=== PATIENT | female | born 1945 | race Caucasian/White ===

== ENCOUNTER 2022-01-22 16:18 | Outpatient (CLI) | payer MEDICARE, SELFPAY ==
[2022-01-22 08:58] LABS: Abs Immature Grans 0.06 10^3/uL (0.0-0.06); Absolute Basophil Count 0.08 10^3/uL (0.0-0.2); Absolute Eosinophil Count 0.25 10^3/uL (0.0-0.7); Absolute Lymphocyte Count 1.02 10^3/uL (1.2-3.4); Absolute Monocyte Count 0.69 10^3/uL (0.1-0.8); Absolute Neutrophil Count 5.57 10^3/uL (1.2-6.7); Eosinophils % 3.3; HCT 39.8 % (36.0-46.0); HGB 12.9 g/dL (11.2-15.7); Immature Grans % 0.8; Lymphocytes % 13.3; MCHC 32.4 % (32.0-36.0); MCV 96 fL (80-95); MPV 9.5 fL (8.0-11.0); Neutrophils % 72.6; Platelet Count 323 10^3/uL (130-400); RBC 4.16 10^6/uL (3.93-5.22); RDW 14.4 % (11.7-14.6); RDW-SD 50.7 fL; WBC 7.67 10^3/uL (4.4-10.8)
[2022-01-22 09:14] LABS: ALT 80 U/L (14-59); AST 41 U/L (15-37); Albumin 3.5 g/dL (3.4-5.0); Alkaline Phosphatase 411 U/L (46-116); Anion Gap 8.6 mmol/L (3-11); BUN 19 mg/dL (7-18); Bilirubin, Total 1.3 mg/dL (0.2-1.0); CO2 27.4 mmol/L (21.0-32.0); CREATININE 0.8 mg/dL (0.55-1.02); Calcium 9.1 mg/dL (8.5-10.1); Chloride 102 mmol/L (98-107); Glucose 102 mg/dL (74-106); Potassium 4.3 mmol/L (3.5-5.1); Sodium 138 mmol/L (136-145); Total Protein 7.4 g/dL (6.4-8.2)
[2022-01-25 11:54] LABS: CA 19-9 23 U/mL (<35)
== END 2022-01-22 16:19 | disposition home or self-care (01) ==
LOC: LBO 16:19
PROVIDERS: Visit Provider Internal Medicine Hematology & Oncology
DX: C25.0 Malignant neoplasm of head of pancreas (principal)
CPT/HCPCS: 36415; 80053; 85025; 86301

== ENCOUNTER 2022-02-05 08:30 | Outpatient (RCR) | payer MEDICARE, SELFPAY ==
[2022-01-24] MEDS: Heparin 500 UNITS/5 ML SYRINGE (14:03)
[2022-01-24] MEDS: Normal Saline Flush 10 ML SYR (14:03)
[2022-01-24 14:17] VITALS: BP 107/59; PULSE 68; RESP 22; TEMP 36.3; O2SAT 96
--- OUTSIDE RECORDS SUMMARY | 2022-01-26 14:13 | XMS_ITS ---
:1945 Author Care Team Providers Name Role Phone KIMMY VILLATORO Primary Care Provider [phone] Allergies Code Code System Name Reaction Severity Status Onset 20331226 RxNorm Benadryl ? ? Active ? 11420124 RxNorm Fosamax ? ? Active ? 20231023 RxNorm Tylenol ? ? Active ? RxNorm Zocor ? ? Active ? Medications Name Status Start Date Stop Date ? ? albuterol sulfate 2.5 mg/3 mL (0.083 %) Completed ? 12/11/2018 solution for nebulization alendronate 70 mg tablet Completed ? 019 alfalfa Active ? Not available 2 tablets three times daily amoxicillin 400 mg/5 mL oral suspension Completed ? 12/11/2018 amoxicillin 875 mg-potassium clavulanate 125 mg Completed ? 02/02/2018 tablet aspirin Active ? Not available 81 mg daily aspirin 81 mg tablet,delayed release Completed ? 12/24/2020 Take 1 tablet every day by oral route. B Complex Active ? Not available 1 daily Bilberry Extract Active ? Not available 1 tab daily Boniva 150 mg tablet Completed 05/20/2009 05/20/2009 1 (one) Tablet: Once monthly Calcium + D Active ? Not available 1 tab daily calcium-vitamin D3 600 mg-5 mcg (200 unit) Completed 10/0504/24/2015 tablet Caltrate Active ? Not available 1tablet twice daily cefdinir 250 mg/5 mL oral suspension Completed ? 12/11/2018 clobetasol 0.05 % topical ointment Completed 12/02/2011 06/15/2012 1 (one) Ointment: twice daily clotrimazole-betamethasone 1 %-0.05 % topical cream Completed 08/17/2007 08/17/2007 1 Cream: Twice daily Co Q-10 200 mg capsule Completed 09/24/2013 6 1 Capsule: qd - daily CoQ10 Active ? Not available 1 tab daily-200 mg cranberry Active ? Not available 1 tab daily Crestor 5 mg tablet Completed 06/18/2009 05/19/2010 1 (one) Tablet: daily cyanocobalamin (vitamin B-12) Active ? No t available 1 daily ezetimibe 10 mg tablet Active ? Not avail able TAKE ONE TABLET BY MOUTH EVERY DAY famotidine 20 mg tablet Completed 10/05/2013 07/24/20 15 1 (one) Tablet: daily flaxseed oil 1,000 mg capsule Completed 05/11/2011 2 (two) Tablespoon(s): two times daily fluconazole 150 mg tablet Completed 10/05/20132014 1 (one) Tablet Tablet: as directed ibuprofen 800 mg tablet Completed 01/15/2013 07/24/20 15 1 Tablet: every 8 hours as needed Lipitor 10 mg tablet Completed 06/04/2011 06/15/2012 1 (one) Tablet: daily loratadine 10 mg tablet Completed ? 02/15/20 18 lovastatin 20 mg tablet Active ? Not avai lable TAKE ONE TABLET BY MOUTH EVERY DAY Macrobid 100 mg capsule Completed 12/11/2008 05/08/20 09 1 Cap: Twice daily multivitamin Completed ? 05/03/2019 1 tab daily omeprazole 20 mg capsule,delayed release Completed ? 11/24/2021 Take 1 capsule every day by oral route in the morning. omeprazole 40 mg capsule,delayed release Active ? Not available TAKE ONE CAPSULE BY MOUTH EVERY DAY Pepto-Bismol Active ? Not available 1 tsp daily at night pravastatin 10 mg tablet Completed ? 020 pravastatin 20 mg tablet Completed ? 021 TAKE ONE TABLET BY MOUTH EVERY DAY pravastatin sodium 20 mg tabs Completed ? Premarin 0.625 mg/gram vaginal cream Completed 08/17/2007 08/17/2007/2 applic Cream: QHS / HS Prevacid 30 mg capsule,delayed release Completed 7 11/04/2006 1 (one) Cap DR: Daily PreviDent 5000 Booster Plus 1.1 % dental paste Completed ? 07/30/2021 Probiotic Active ? Not available 3 caps daily Pulmicort 1 mg/2 mL suspension for nebulization Completed ? 12/11/2018 Pyridium 100 mg tablet Completed 12/11/2008 9 1 Tablet: tid - three times a day Pyridium 200 mg tablet Completed 08/28/2015 6 1 (one) Tablet: See comments red yeast rice 600 mg capsule Completed 06/23/2007 1 (one) Capsule: daily Repatha SureClick 140 mg/mL subcutaneous pen injector Completed 12/13/2018 05/03/2019 140 mg every two weeks. Terazol 3 80 mg vaginal suppository Completed 07/04/2007 07/07/2007 1 (one) Suppository: QHS / HS Terazol 7 0.4 % vaginal cream Completed 06/14/2007 1 (one) Applicator(s): QHS / HS Notes: kelp and alfalfa 01/01/22 verbal review Problems Name Status Onset Date Source ? Mass of Pancreas Active 12/24/2021 ? Hyperlipidemia Active ? History Temporomandibular Joint Disorder Active ? History Focal Oral Mucinosis Active ? History Gastroesophageal Reflux Disease Active ? History Atrophic Vaginitis Unknown ? History Backache Unknown ? History Osteoporosis Active ? History Dysuria Unknown ? History Abdominal Pain Unknown ? History Gynecologic Examination Unknown ? History Screening Mammography Unknown ? History Procedure by Method Unknown ? History Procedures Date Name Performed by ? 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 [address] [place] [address] (Work Place) 12/11/2018 MAMMO, Screening, Tomosynthesis, [facility] (Internal) Bilateral [address] [place] [address] (Work Place) 02/08/2019 MAMMO, Screening, Tomosynthesis, [facility] (Internal) Bilateral [address] [place] [address] (Work Place) 12/24/2019 MAMMO, Screening, Tomosynthesis, [facility] (Internal) Bilateral [address] [place] [address] (Work Place) 05/14/2020 MAMMO, Screening, Tomosynthesis, [facility] (Internal) Bilateral [address] [place] [address] (Work Place) 12/24/2020 MAMMO, Screening, Tomosynthesis, [facility] (Internal) Bilateral [address] [place] [address] (Work Place) 11/24/2021 US, Echocardiogram, Transthoracic, [facility] (Internal) Complete [address] [place] [address] (Work Place) 11/24/2021 US, Carotid Artery [facility] (Internal) [address] [place] [address] (Work Place) 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 01/01/2022 CBC W/ Auto BLD ? Wbc 9.7 5.0-10.0 Final [place] Diff 10*3/uL 10*3/uL [facility] L ab (Internal) : [address] ? ? BLD Low Rbc 4.02 4.10-5.30 Final [place] 10*6/uL 10*6/uL [facility] L ab (Internal) : [address] ? ? BLD ? Hgb 12.0 g/dL 12.0-16.0 Final Nort h g/dL [facility] L ab (Internal) : [address] ? ? BLD ? Hct 37.6 % 37.0-47.0 Final [facility] L ab (Internal) : [address] ? ? BLD ? Mcv 93.5 fL 80.0-96.0 Final [facility] L ab (Internal) : [address] ? ? BLD ? Mch 29.9 pg 26.0-32.0 Final [facility] Hospital L ab (Internal) : [address] ? ? BLD ? Mchc 31.9 g/dL 31.0-35.0 Final Nort h g/dL [facility] L ab (Internal) : [address] ? ? BLD High Rdw 17.8 % 11.5-14.5 Final [facility] L ab (Internal) : [address] ? ? BLD ? Plt 407 130-450 Final [place] 10*3/uL 10*3/uL [facility] L ab (Internal) : [address] 01/01/2022 Differential BLD ? Polys 72 % 40-75 % Final [facility] Hospital L ab (Internal) : [address] ? ? BLD ? Bands 1 % 0-5 % Final [facility] Hospital L ab (Internal) : [address] [place] ? ? BLD Low Lymphs 11 % 20-50 % Final [facility] L ab (Internal) : [address] ? ? BLD ? Reeves 7 % 2-10 % Final [facility] L ab (Internal) : [address] ? ? BLD ? Eos 2 % 0-6 % Final [facility] L ab (Internal) : [address] ? ? BLD ? Baso 0 % 0-1 % Final [facility] L ab (Internal) : [address] ? ? BLD ? Atyp Lymph 0 % ? Final [facility] L ab (Internal) : [address] ? ? BLD High Young 7 % 0-0 % Final [facility] L ab (Internal) : [address] ? ? BLD ? Plts, Est. adequate adequate [facility] : [address] ? ? BLD ABNORMAL RBC abnormal normal Final [facility] L ab (Internal) : [address] t ? ? BLD ? Aniso small ? Final [facility] L ab (Internal) : [address] ? ? BLD ? Polychrom rare ? Final [facility] L ab (Internal) : [address] ? ? BLD ? Stomat small ? Final [facility] L ab (Internal) : [address] 01/01/2022 Neutrophil BLD ? Anc-manual 7.05 ? Shirin l [place] Count, 10*3/uL [facility] Lab (Anc), Blood (Int ernal): [address] 01/01/2022 Nlr-manual BLD High Nlr - 6.64 0.00-3.20 Final [facility] L ab (Internal) : [address] 01/01/2022 CMP, Serum S High g/r 164 mg/dL 74-106 Final [place] or Plasma mg/dL [facility] L ab (Internal) : [address] t ? ? S ? Bun 11 mg/dL 7-18 Final [facility] mg/dL [facility] L ab (Internal) : [address] t ? ? S ? Crea 0.7 mg/dL 0.6-1.0 Final [facility] mg/dL [facility] L ab (Internal) : [address] t ? ? S Low Ca 8.2 mg/dL 8.5-10.1 Final [place] mg/dL [facility] L ab (Internal) : [address] t ? ? S ? Na 136 mmol/L 136-145 Final [facility] mmol/L [facility] L ab (Internal) : [address] t ? ? S ? K 4.5 mmol/L 3.5-5.1 Final [facility] mmol/L [facility] L ab (Internal) : [address] t ? ? S ? Cl 102 mmol/l 98-107 Final [facility] mmol/l [facility] L [facility] (Internal) : [address] t ? ? S ? Tco2 29.1 21.0-32.0 Final [place] mmol/L mmol/L [facility] L ab (Internal) : [address] t ? ? S Low Tp 6.0 g/dL 6.4-8.2 Final [place] g/dL [facility] L ab (Internal) : [address] t ? ? S Low Alb 2.6 g/dL 3.4-5.0 Final [place] g/dL [facility] L ab (Internal) : [address] t ? ? S High Tbil 4.00 mg/dL 0.20-1.00 Final [facility] th mg/dL [facility] L ab (Internal) : [address] t ? ? S High Alp 1318 U/L 46-116 Final [place] U/L [facility] L ab (Internal) : [address] ? ? S High Alt (Sgpt) 317 U/L 14-59 U/L Final [facility] L ab (Internal) : [address] ? ? S High Ast (Sgot) 342 U/L 15-37 U/L Final [facility] L ab (Internal) : [address] t 12/14/2021 CBC W/ Auto BLD ? Wbc 5.4 5.0-10.0 Final [place] Diff 10*3/uL 10*3/uL [facility] L ab (Internal) : [address] t ? ? BLD ? Rbc 4.49 4.10-5.30 Final [place] 10*6/uL 10*6/uL [facility] L ab (Internal) : [address] t ? ? BLD ? Hgb 13.6 g/dL 12.0-16.0 Final Nort [facility] g/dL [facility] L ab (Internal) : [address] t ? ? BLD ? Hct 42.4 % 37.0-47.0 Final [place] % [facility] L ab (Internal) : [address] ? ? BLD ? Mcv 94.4 fL 80.0-96.0 Final [facility] L ab (Internal) : [address] ? ? BLD ? Mch 30.3 pg 26.0-32.0 Final [facility] Hospital L ab (Internal) : [address] ? ? BLD ? Mchc 32.1 g/dL 31.0-35.0 Final Nort h g/dL [facility] L ab (Internal) : [address] ? ? BLD High Rdw 14.9 % 11.5-14.5 Final [facility] L ab (Internal) : [address] ? ? BLD ? Plt 246 130-450 Final [place] 10*3/uL 10*3/uL [facility] L ab (Internal) : [address] ? ? BLD ? Anc 3.99 ? Final [place] 10*3/uL [facility] L ab (Internal) : [address] ? ? BLD High Nlr 5.12 0.00-3.20 Final [facility] L ab (Internal) : [address] ? ? BLD ? Neutro 74.1 % 40.0-75.0 Final [facility] L ab (Internal) : [address] ? ? BLD Low Lymph 14.5 % 20.0-50.0 Final [facility] L ab (Internal) : [address] ? ? BLD ? Reeves 8.2 % 2.0-10.0 Final [facility] L ab (Internal) : [address] ? ? BLD ? Eos 1.5 % 1.0-6.0 % Final [facility] L ab (Internal) : [address] ? ? BLD High Baso 1.1 % 0.0-1.0 % Final [facility] L ab (Internal) : [address] ? ? BLD ? Ig 0.6 % 0.0-0.9 % Final [facility] L ab (Internal) : [address] t 12/14/2021 Urinalysis, UR ? UA-color yellow pale Final [place] Dipstick, yellow [facility] ital Lab (Internal) : [address] ? ? UR ? UA-appear clear clear Final [facility] ab (Internal) : [address] t ? ? UR ? UA-gluc negative negative Final [facility] L ab (Internal) : [address] t ? ? UR ? UA-bili negative negative Final [facility] L ab (Internal) : [address] t ? ? UR ? UA-ketone negative negative Final No rth [facility] L ab (Internal) : [address] t ? ? UR ? UA-spec <1.005 1.003-1.0 Final [place] Grav 35 [facility] L ab (Internal) : [address] t ? ? UR ? UA-blood negative negative Final [facility] L ab (Internal) : [address] t ? ? UR ? UA-pH 6.0 [pH] 4.6-8.0 Final [place] [pH] [facility] L ab (Internal) : [address] t ? ? UR ? UA-prot negative negative Final [facility] L ab (Internal) : [address] t ? ? UR ? UA-urobil normal normal Final [facility] L ab (Internal) : [address] t ? ? UR ? UA-nitrite negative negative Final N orth [facility] L ab (Internal) : [address] t ? ? UR ? UA-leuk negative negative Final [facility] L ab (Internal) : [address] 12/14/2021 BMP, Serum S High g/r 158 mg/dL 74-106 Final [place] or Plasma mg/dL [facility] L ab (Internal) : [address] t ? ? S ? Bun 10 mg/dL 7-18 Final [place] mg/dL [facility] L ab (Internal) : [address] t ? ? S ? Crea 0.7 mg/dL 0.6-1.0 Final [place] mg/dL [facility] L ab (Internal) : [address] t ? ? S ? Ca 9.3 mg/dL 8.5-10.1 Final [place] mg/dL [facility] L ab (Internal) : [address] t ? ? S ? Na 138 mmol/L 136-145 Final [place] mmol/L [facility] L ab (Internal) : [address] t ? ? S ? K 4.2 mmol/L 3.5-5.1 Final [place] mmol/L [facility] L ab (Internal) : [address] t ? ? S ? Cl 101 mmol/l 98-107 Final [place] mmol/l [facility] L ab (Internal) : [address] t ? ? S ? Tco2 28.3 21.0-32.0 Final [place] mmol/L mmol/L [facility] Hospital L ab (Internal) : [address] 12/14/2021 Hepatic S High Tbil 9.80 mg/dL 0.20-1.00 Final [place] Function mg/dL [facility] Panel, Serum Hosp ital Lab (Internal) : [address] t ? ? S High Dbil 7.74 mg/dL 0.00-0.20 Final [facility] th mg/dL [facility] Hospital L ab (Internal) : [address] t ? ? S High Alp 430 U/L 46-116 Final [place] U/L [facility] L ab (Internal) : [address] t ? ? S High Alt (Sgpt) 282 U/L 14-59 U/L Final [facility] L ab (Internal) : [address] t ? ? S High Ast (Sgot) 131 U/L 15-37 U/L Final [facility] L ab (Internal) : [address] t ? ? S High Ggt 1173 U/L 5-55 U/L Final [facility] L ab (Internal) : [address] t ? ? S ? Tp 7.9 g/dL 6.4-8.2 Final [place] g/dL [facility] L ab (Internal) : [address] t ? ? S ? Alb 4.0 g/dL 3.4-5.0 Final [place] g/dL [facility] Hospital L ab (Internal) : [address] 12/14/2021 CK (Creatine S ? Cpk 39 U/L 26-192 Final [place] Kinase), U/L [place] Total, Serum Hosp ital Lab (Internal) : [address] [facility] 12/14/2021 ESR BLD ? Esr 4 mm/h 0-30 mm/h Final Nor th (Erythrocyte Coun try Sedimentatio Hosp ital Lab n Rate), (Interna l): Blood [address] 12/14/2021 Lipase, S ? Lip 153 U/L 73-393 Final Nort h Serum or U/L [facility] Plasma Hospital L ab (Internal) : [address] [facility] 12/14/2021 CRP, High S High Rcrp 3.78 mg/L 0.00-3.00 Shirin [facility] Sensitivity, mg/L Coun try Serum or Hospital Lab Plasma (Internal) : [address] [facility] 12/14/2021 Phosphorus, S ? Phos 3.1 mg/dL 2.6-4.7 Shirin [facility] Serum or mg/dL [facility] Hospital L ab (Internal) : [address] [facility] 12/14/2021 Hepatitis S ? Hepatitis negative negative [facility] Panel a IgM Ab, S Count ry (A+B+C), Hospital Lab Acute, Serum (Int ernal): [address] t ? ? S ? Hbs negative negative Final [place] Antigen, S [facility] L ab (Internal) : [address] t ? ? S ? Hbc IgM negative negative Final Nort h Ab, S [facility] L ab (Internal) : [address] t ? ? S ? HCV Ab, S negative negative Final No rth [facility] ab (Internal) : [address] [facility] Aldolase, S High Aldolase, 10.3 U/L <7.7 U/L [facility] Serum S [facility] L ab (Internal) : [address] [facility] 12/14/2021 CK (Creatine S ? Creatine 38 U/L 26 - 192 Fi [facility] Kinase) Kinase U/L [place] Isoenzymes, (CK), S Hosp ital Lab Serum (Internal) : [address] t ? ? S ? CK if CK ? Final [place] Isoenzyme result IS Coun try Elec, <100, Hospital L ab Specimen isoenzyme (Inte rnal): Only will not [address] performed. 11/24/2021 CBC W/ Auto BLD ? Wbc 6.2 5.0-10.0 Final [place] Diff 10*3/uL 10*3/uL [facility] L ab (Internal) : [address] ? ? BLD ? Rbc 4.59 4.10-5.30 Final [place] 10*6/uL 10*6/uL [facility] Hospital L ab (Internal) : [address] ? ? BLD ? Hgb 14.0 g/dL 12.0-16.0 Final Nort h g/dL [facility] L ab (Internal) : [address] ? ? BLD ? Hct 42.7 % 37.0-47.0 Final [facility] L ab (Internal) : [address] ? ? BLD ? Mcv 93.0 fL 80.0-96.0 Final [facility] L ab (Internal) : [address] ? ? BLD ? Mch 30.5 pg 26.0-32.0 Final [facility] L ab (Internal) : [address] ? ? BLD ? Mchc 32.8 g/dL 31.0-35.0 Final Nort h g/dL [facility] L ab (Internal) : [address] ? ? BLD ? Rdw 12.6 % 11.5-14.5 Final [facility] L ab (Internal) : [address] ? ? BLD ? Plt 279 130-450 Final [place] 10*3/uL 10*3/uL [facility] L ab (Internal) : [address] ? ? BLD ? Anc 4.53 ? Final [place] 10*3/uL [facility] L ab (Internal) : [address] ? ? BLD High Nlr 4.23 0.00-3.20 Final [facility] L ab (Internal) : [address] ? ? BLD ? Neutro 73.5 % 40.0-75.0 Final [facility] L ab (Internal) : [address] ? ? BLD Low Lymph 17.3 % 20.0-50.0 Final [place] % [facility] Hospital L ab (Internal) : [address] ? ? BLD ? Reeves 7.1 % 2.0-10.0 Final [place] % [facility] Hospital L ab (Internal) : [address] ? ? BLD ? Eos 1.1 % 1.0-6.0 % Final [facility] Hospital L ab (Internal) : [address] ? ? BLD ? Baso 0.8 % 0.0-1.0 % Final [facility] L ab (Internal) : [address] ? ? BLD ? Ig 0.2 % 0.0-0.9 % Final [facility] L ab (Internal) : [address] 11/24/2021 HbA1C BLD High Ha1C 6.7 % 4.0-6.0 % Final Nor th (Hemoglobin Count ry a1C), Blood Hospi alessandra Lab (Internal) : [address] 11/24/2021 CRP, High S ? Rcrp 1.40 mg/L 0.00-3.00 Shirin l [place] Sensitivity, mg/L Coun try Serum or Hospital Lab Plasma (Internal) : [address] 11/24/2021 CMP, Serum S High g/r 157 mg/dL 74-106 Final [facility] or Plasma mg/dL [facility] (Internal) : [address] t ? ? S ? Bun 14 mg/dL 7-18 Final [place] mg/dL [facility] Hospital L ab (Internal) : [address] t ? ? S ? Crea 0.9 mg/dL 0.6-1.0 Final [place] mg/dL [facility] Hospital L ab (Internal) : [address] t ? ? S ? Ca 9.1 mg/dL 8.5-10.1 Final [place] mg/dL [facility] Hospital L ab (Internal) : [address] t ? ? S ? Na 142 mmol/L 136-145 Final [place] mmol/L [facility] Hospital L ab (Internal) : [address] ? ? S ? K 4.3 mmol/L 3.5-5.1 Final [facility] mmol/L [facility] (Internal) : [address] ? ? S ? Cl 103 mmol/l 98-107 Final [facility] mmol/l [facility] (Internal) : [address] ? ? S High Tco2 35.1 21.0-32.0 Final [facility] mmol/L mmol/L [facility] (Internal) : [address] t ? ? S ? Tp 7.6 g/dL 6.4-8.2 Final [facility] g/dL [facility] (Internal) : [address] t ? ? S ? Alb 4.0 g/dL 3.4-5.0 Final [facility] g/dL [facility] (Internal) : [address] ? ? S ? Tbil 0.60 mg/dL 0.20-1.00 Final [facility] mg/dL [facility] (Internal) : [address] ? ? S High Alp 164 U/L 46-116 Final [facility] U/L [facility] (Internal) : [address] t ? ? S High Alt (Sgpt) 81 U/L 14-59 U/L Final No rth [facility] L [facility] (Internal) : [address] ? ? S High Ast (Sgot) 53 U/L 15-37 U/L Final [facility] rth [facility] (Internal) : [address] 11/24/2021 Lipase, S ? Lip 352 U/L 73-393 Final Nort h Serum or U/L [facility] L ab (Internal) : [address] 07/31/2021 CMP, Serum S High g/r 119 mg/dL 74-106 Final [facility] or Plasma mg/dL [facility] (Internal) : [address] t ? ? S ? Bun 14 mg/dL 7-18 Final [facility] mg/dL [facility] (Internal) : [address] t ? ? S ? Crea 0.8 mg/dL 0.6-1.0 Final [facility] mg/dL [facility] (Internal) : [address] t ? ? S ? Ca 9.3 mg/dL 8.5-10.1 Final [facility] mg/dL [facility] (Internal) : [address] ? ? S ? Na 140 mmol/L 136-145 Final [facility] mmol/L [facility] (Internal) : [address] ? ? S ? K 4.1 mmol/L 3.5-5.1 Final [facility] mmol/L [facility] (Internal) : [address] t ? ? S ? Cl 102 mmol/l 98-107 Final [facility] mmol/l [facility] (Internal) : [address] ? ? S ? Tco2 30.8 21.0-32.0 Final [facility] mmol/L mmol/L [facility] (Internal) : [address] ? ? S ? Tp 7.8 g/dL 6.4-8.2 Final [facility] g/dL [facility] (Internal) : [address] t ? ? S ? Alb 4.3 g/dL 3.4-5.0 Final [facility] g/dL [facility] : [address] [facility] ? ? S ? Tbil 0.90 mg/dL 0.20-1.00 Final Nor th mg/dL [facility] ([facility] : [address] ? ? S ? Alp 103 U/L 46-116 Final [place] U/L [facility] ([facility]) : [address] ? ? S ? Alt (Sgpt) 26 U/L 14-59 U/L Final No rth [facility] ([facility]) : [address] ? ? S ? Ast (Sgot) 16 U/L 15-37 U/L Final No rth [facility] ([facility]) : [address] t 07/31/2021 Lipid Panel, S High Chol 259 mg/dL 0-200 [facility] [place] Serum mg/dL [facility] ([facility]) : [address] ? ? S High Trig 176 mg/dL 0-150 Final [place] mg/dL [facility] ([facility]) : [address] ? ? S ? Hdl 42 mg/dL 40-60 Final [place] mg/dL [facility] ([facility]) : [address] ? ? S High Ldl 182 mg/dL 0-130 Final [place] mg/dL [facility] ([facility]) : [address] t 12/26/2019 CMP, Serum S ? g/r 102 mg/dL 74-106 Final [place] or Plasma mg/dL [facility] ([facility]) : [address] ? ? S ? Bun 14 mg/dL 7-17 Final [place] mg/dL [facility] ([facility]) : [address] ? ? S ? Crea 0.80 mg/dL 0.52-1.04 Final Nor th mg/dL [facility] ([facility]) : [address] ? ? S ? Ca 9.5 mg/dL 8.4-10.2 Final [place] mg/dL [facility] ([facility]) : [address] ? ? S ? Na 141 mmol/L 137-145 Final [place] mmol/L [facility] ([facility]) : [address] ? ? S ? K 4.3 mmol/L 3.5-5.1 Final [place] mmol/L [facility] ([facility]) : [address] ? ? S ? Cl 100 mmol/L 98-107 Final [place] mmol/L [facility] ([facility]) : [address] ? ? S High Tco2 32.0 22.0-30.0 Final [place] mmol/L mmol/L [facility] ([facility]) : [address] ? ? S ? Tp 7.8 g/dL 6.3-8.2 Final [place] g/dL [facility] ([facility]) : [address] ? ? S ? Alb 4.5 g/dL 3.5-5.0 Final [place] g/dL [facility] ([facility]) : [address] ? ? S ? Tbil 0.9 mg/dL 0.2-1.3 Final [place] mg/dL [facility] ([facility]) : [address] ? ? S ? Alp 89 U/L 38-126 Final [place] U/L [facility] ([facility]) : [address] ? ? S ? Alt (Sgpt) 15 U/L 9-52 U/L Final Nor th [facility] ([facility]) : [address] ? ? S ? Ast (Sgot) 30 U/L 14-36 U/L Final No rth [facility] ([facility]) : [address] 12/26/2019 Lipid Panel, S High Chol 225 mg/dL 50-200 [facility] [place] Serum mg/dL [facility] ([facility]) : [address] ? ? S High Trig 196 mg/dL 10-150 Final [place] mg/dL [facility] ([facility]) : [address] ? ? S ? Hdl 41 mg/dL 40-60 Final [place] mg/dL [facility] ([facility]) : [address] ? ? S High Ldl 145 mg/dL 0-130 Final [place] mg/dL [facility] ([facility]) : [address] 07/30/2019 Lipid Panel, S High Chol 225 mg/dL 50-200 [facility] [place] Serum mg/dL [facility] ([facility]) : [address] ? ? S High Trig 230 mg/dL 10-150 Final [place] mg/dL [facility] ([facility]) : [address] ? ? S - Hdl 41 mg/dL 40-60 Final [place] mg/dL [facility] ([facility] : [address] ? ? S High Ldl 138 mg/dL 0-130 Final [place] mg/dL [facility] ([facility]) : [address] 04/30/2019 Lipid Panel, S High Chol 264 mg/dL 50-200 [facility] [place] Serum mg/dL [facility] ([facility]) : [address] ? ? S - Trig 119 mg/dL 10-150 Final [place] mg/dL [facility] ([facility] : [address] ? ? S - Hdl 42 mg/dL 40-60 Final [place] mg/dL [facility] ([facility]) : [address] ? ? S High Ldl 198 mg/dL 0-130 Final [place] mg/dL [facility] ([facility]) : [address] 12/12/2018 BMP, Serum S - g/r 100 mg/dL 74-106 Final [place] or Plasma mg/dL [facility] ([facility]) : [address] ? ? S - Bun 13 mg/dL 7-17 Final [place] mg/dL [facility] ([facility]) : [address] ? ? S - Crea 0.80 mg/dL 0.52-1.04 Final Nor th mg/dL [facility] ([facility]) : [address] ? ? S - Ca 9.0 mg/dL 8.4-10.2 Final [place] mg/dL [facility] ([facility]) : [address] ? ? S - Na 140 mmol/L 137-145 Final [place] mmol/L [facility] ([facility]) : [address] ? ? S - K 4.1 mmol/L 3.5-5.1 Final [place] mmol/L [facility] ([facility]) : [address] ? ? S - Cl 105 mmol/L 98-107 Final [place] mmol/L [facility] ([facility]) : [address] ? ? S - Tco2 29.0 22.0-30.0 Final [place] mmol/L mmol/L [facility] ([facility]) : [address] 12/12/2018 Lipid Panel, S High Chol 275 mg/dL 50-200 [facility] [place] Serum mg/dL [facility] ([facility]) : [address] ? ? S High Trig 188 mg/dL 10-150 Final [place] mg/dL [facility] ([facility]) : [address] ? ? S - Hdl 41 mg/dL 40-60 Final [place] mg/dL [facility] ([facility]) : [address] ? ? S High Ldl 196 mg/dL 0-130 Final [place] mg/dL [facility] ([facility]) : [address] 02/02/2018 Dexa ? No ? ? ? P_ob/G yn: 81 observation Medic al recorded. [facility] 12/03/2016 Venipuncture BLD ? Venpn* ? ? Final [facility] ([facility]) : [address] 12/03/2016 Glucose, S ? g/r 103 mg/dL 74-106 Final N orth Serum or mg/dL [facility] ([facility]) : [address] 12/03/2016 TSH, Serum S ? Tsh 2.39 0.47-4.68 Final [place] or Plasma u[IU]/mL u[IU]/mL [facility] (Internal) : [address] 12/03/2016 Lipid Panel, S High Chol 260 mg/dL 50-200 Shirin l [place] Serum mg/dL [facility] (Internal) : [address] ? ? S High Trig 207 mg/dL 10-150 Final North mg/dL [facility] (Internal) : [address] ? ? S ? Hdl 40 mg/dL 40-60 Final [place] mg/dL [facility] (Internal) : [address] ? ? S High Ldl 179 mg/dL 0-130 Final [place] mg/dL [facility] (Internal) : [address] Past Encounters 01/01/2022 Mass of Pancreas; Cholecystitis; Jaundic e Kimmy Dee PA: [address] [place] [address], Ph. 12/14/2021 Jaundice Kimmy Dee PA: [address] [place] [address], Ph. 11/24/2021 Nausea; Lightheadedness; Near Syncope; H yperlipidemia Kimmy Dee PA: [address] [place] [address], Ph. 07/30/2021 Hyperlipidemia Kimmy Dee PA: [address] [place] [phone], Ph. 04/30/2021 Hyperlipidemia IRVING Fong: [address] [place] [address], Ph. 12/24/2020 Adult Health Examination; Screening Mamm ography; Administration of Pneumococcal Vaccine; Hyperlipidemia; Osteoporosis IRVING Fong: [address] [place] [address], Ph. Social History Tobacco Smoking Status Never Smoker Vaccine List Vaccine Type COVID-19, mRNA, LNP-S, PF, 100 mcg/0.5 m L dose (Moderna) 10/21/2020?0.5 mL 11/17/2020?100 mcg 07/13/2021 influenza, seasonal, injectable 06/05/2012 06/13/2014?0.5 mL influenza, seasonal, injectable, preserv ative free 06/21/2013?0.5 mL pneumococcal conjugate PCV 13 01/10/2019?0.5 mL pneumococcal polysaccharide PPV23 12/24/2020?0.5 mL rubella Tdap 05/08/2009 12/24/2019?0.5 mL varicella zoster live 08/22/2012 Plan of Care Reminders Provider Appointments None recorded. ? ? Lab None recorded. ? ? Referral None recorded. ? ? Procedures None recorded. ? ? Surgeries None recorded. ? ? Imaging None recorded. ? ? Vitals 01/01/2022 03:40PM Follow Up 20 Height Weight BMI Blood Pressure 152.4 cm 59.38 kg 25.6 kg/m2 122/72 mm[Hg] 12/14/2021 12:40PM Acute 20 Height Weight BMI Blood Pressure 152.4 cm 57.74 kg 24.9 kg/m2 104/66 mm[Hg] 11/24/2021 10:40AM Acute 40 Height Weight BMI Blood Pressure 152.4 cm 58.51 kg 25.2 kg/m2 (1) 130/78 mm[H g] (2) 128/72 mm[Hg ] (3) 122/68 mm[Hg ] (4) 124/74 mm[Hg ] 07/30/2021 02:40PM Follow Up 20 Height Weight BMI Blood Pressure 152.4 cm 61.43 kg 26.5 kg/m2 112/70 mm[Hg] 04/30/2021 03:20PM Follow Up 20 Height Weight BMI Blood Pressure 152.4 cm 63.05 kg 27.1 kg/m2 (1) 140/80 mm[H g] (2) 115/70 mm[Hg ] 12/24/2020 07:40AM AWV 40 Height Weight BMI Blood Pressure 152.4 cm 64.18 kg 27.6 kg/m2 122/70 mm[Hg] 05/14/2020 11:20AM HME 20 Height Weight BMI Blood Pressure 152.4 cm 64 kg 27.6 kg/m2 124/74 mm[Hg] 12/24/2019 01:40PM AWV 40 Height Weight BMI Blood Pressure 152.4 cm 67.18 kg 28.9 kg/m2 122/62 mm[Hg] 07/31/2019 10:20AM Follow Up 20 Height Weight BMI Blood Pressure 152.4 cm 65.14 kg 28 kg/m2 114/62 mm[Hg] 05/03/2019 08:20AM Follow Up 40 Height Weight BMI Blood Pressure 152.4 cm 61.75 kg 26.6 kg/m2 110/68 mm[Hg] 02/08/2019 11:00AM HME 20 Height Weight BMI Blood Pressure 152.4 cm 64.59 kg 27.8 kg/m2 118/76 mm[Hg] 12/20/2018 09:20AM Follow Up 40 Height Weight BMI Blood Pressure 152.4 cm 66.37 kg 28.6 kg/m2 120/74 mm[Hg] 12/11/2018 01:40PM New Patient 40 Height Weight BMI Blood Pressure 152.4 cm 66.28 kg 28.5 kg/m2 120/86 mm[Hg] 02/02/2018 10:00AM HME 20 Height Weight BMI Blood Pressure 152.4 cm 64.32 kg 27.7 kg/m2 108/76 mm[Hg] 11/25/2016 Height Weight Blood Pressure 152.4 cm 63.96 kg 112/70 mm[Hg] 11/17/2015 Height Weight Blood Pressure 152.4 cm 63.5 kg 126/76 mm[Hg] 08/28/2015 Height Weight Blood Pressure 152.4 cm 61.69 kg 122/70 mm[Hg] 04/24/2015 Height Weight Blood Pressure 152.4 cm 61.23 kg 118/64 mm[Hg] 08/07/2014 Weight Blood Pressure 63.05 kg 118/64 mm[Hg] 06/26/2014 Height Weight Blood Pressure 152.4 cm 62.14 kg 110/62 mm[Hg] 10/12/2013 Height Weight Blood Pressure 152.4 cm 62.64 kg 106/64 mm[Hg] 10/05/2013 Height Weight Blood Pressure 152.4 cm 62.51 kg 122/84 mm[Hg] 09/24/2013 Weight Blood Pressure 62.73 kg 118/74 mm[Hg] 06/21/2013 Height Weight Blood Pressure 152.4 cm 61.46 kg 100/60 mm[Hg] 04/12/2013 Height Weight Blood Pressure 152.4 cm 61.01 kg 98/58 mm[Hg] 06/15/2012 Height Weight Blood Pressure 152.4 cm 60.89 kg 120/72 mm[Hg] 01/24/2012 Height Weight Blood Pressure 152.4 cm 62.82 kg 118/72 mm[Hg] 12/02/2011 Height Weight Blood Pressure 152.4 cm 63.96 kg 112/64 mm[Hg] 06/15/2011 Height Weight Blood Pressure 152.4 cm 62.14 kg 100/62 mm[Hg] 05/11/2011 Height Weight Blood Pressure 152.4 cm 60.83 kg 98/64 mm[Hg] 05/19/2010 Weight Blood Pressure 61.69 kg 100/62 mm[Hg] 11/12/2009 Weight Blood Pressure 59.42 kg 100/70 mm[Hg] 08/25/2009 Weight Blood Pressure 60.33 kg 100/70 mm[Hg] 07/28/2009 Weight Blood Pressure 59.42 kg 120/78 mm[Hg] 05/20/2009 Weight Blood Pressure 60.33 kg 98/68 mm[Hg] 05/08/2009 Weight Blood Pressure 59.42 kg 110/60 mm[Hg] 11/05/2008 Height Weight Blood Pressure 154.94 cm 61.23 kg 112/60 mm[Hg] 08/08/2008 Weight Blood Pressure 63.05 kg 112/76 mm[Hg] 05/08/2008 Height Weight Blood Pressure 154.94 cm 60.33 kg 100/60 mm[Hg] 05/01/2008 Height Weight Blood Pressure 154.94 cm 59.87 kg 120/68 mm[Hg] 10/19/2007 Height Weight Blood Pressure 152.91 cm 63.05 kg 96/70 mm[Hg] 08/17/2007 Weight Blood Pressure 62.6 kg 118/62 mm[Hg] 07/12/2007 Weight Blood Pressure 63.05 kg 118/72 mm[Hg] 06/14/2007 Weight Blood Pressure 63.05 kg 128/78 mm[Hg] 05/24/2007 Weight Blood Pressure 62.14 kg 106/70 mm[Hg] 10/19/2006 Weight Blood Pressure 61.69 kg (1) 110/80 mm[Hg] (2) 112/74 mm[Hg] 10/13/2006 Height Weight Blood Pressure 154.94 cm 62.14 kg 106/76 mm[Hg] 10/12/2005 Height Weight Blood Pressure 154.94 cm 61.69 kg 120/74 mm[Hg] 08/19/2004 Height Weight Blood Pressure 154.94 cm 62.6 kg 100/62 mm[Hg] 06/29/2004 Weight Blood Pressure 60.78 kg 100/70 mm[Hg]
--- OUTSIDE RECORDS SUMMARY | 2022-01-26 14:14 | XMS_ITS | Encounter Summary ---
:1945 Author Care Team Providers Name Role Phone Kimmy VILLATORO Primary Care Provider [phone] Reason for Visit dizziness; nausea/vomiting Assessment and Plan 1. Nausea Patient notes several months of nausea without vomiting. No abdominal pain. She is having normal bowel movements. She denies GERD sxs but has been taking omeprazole 20 mg qd. She has lost 6# over the last 3 months and this seems unintentional. She does still have her gallbladder. Dif ferential is broad: GERD vs. gastritis vs. gallbladder vs. central etiology (no neurologic deficit) vs. cardiac etiology. I also question if her nausea is related to her large amount of supplements. I have asked her to stop all supplements x 2 weeks to see if her nausea improves. Will start investigation of blood work, consider RUQ US. She will increase her omeprazole to 40 mg qd. She is scheduled to follow up with me in 1 month. ? CBC w/ auto diff ? lipase, serum or plasma ? CMP, serum or plasma ? HbA1c (hemoglobin A1c), blood ? CRP, high sensitivity, serum or plasm a 2. Lightheadedness Patient is having exertionally mediated episodes of lightheadedness and pre- syncope; however, there are times that she is active and does not have these symptoms. VS stable in clinic, nontoxic appearing. She does not have chest pain or pressure in clinic. No lightheadedness in clinic. She does note some nausea today. Orthostatic vital signs today are normalj with symptoms of lightheadedness or dizziness. Will proceed with US carotids, echo and cardiac montior to assess for cardiac etiology. She does have consult with cardiology for familial hyperlipidemia on 01/2022. Discussed s/sxs which would warrant furt her evaluation in ER. ? US, echocardiogram, transthoracic, co mplete ? US, carotid artery ? campus monitor - 14 days ? omeprazole 40 mg capsule,delayed rele ase 3. Near syncope 4. Hyperlipidemia Patient with h/o LDL 198, historically intolerant of statins. Was on repatha and could not tolerate. Could not tolerate retrial of pravastatin. Patient has been able to tolerate zetia 10 mg qd, she did not have improvement in LDL and stopped taking this. Discussed very high risk of CVA and/or M I. She is scheduled with cardiology 01/2022 for HLD. After discussion she is willing to try another statin, will have her start lovsatatin 20 mg qd and continue on zetia 10 mg qd. ? lovastatin 20 mg tablet ? Zetia 10 mg tablet Discussion Note: None recorded.Patient educational handouts: No information available. Plan of Care Reminders Provider Appointments Consult 45 02/03/2022 2:15PM Gómez Chavez MD ? Return to Office on or around Phi Issa MD 11/01/2022 Lab CBC W/ Auto Diff 11/24/2021 Lab (Internal) ? Lipase, Serum or Plasma 11/24/2021 Lab (Internal) ? CMP, Serum or Plasma 11/24/2021 [facility] Lab (Internal) ? HbA1C (Hemoglobin a1C), 11/24/2021 Blood Lab (Internal) ? CRP, High Sensitivity, 11/24/2021 [facility] Serum or Plasma Lab (Internal) Referral None recorded. ? ? Procedures None recorded. ? ? Surgeries None recorded. ? ? Imaging US, Echocardiogram, 11/24/2021 [facility] Transthoracic, Complete Radiolog y (Internal) ? US, Carotid Artery 11/24/2021 [facility] Radiology (Inter nal) ? Automotive Specialty Technician 11/24/2021 Radiology (Inter nal) Medications Name Start Date ? ? alfalfa ? 2 tablets three times daily aspirin ? 81 mg daily B Complex ? 1 daily Bilberry Extract ? 1 tab daily Calcium + D ? 1 tab daily Caltrate ? 1tablet twice daily CoQ10 ? 1 tab daily-200 mg cranberry ? 1 tab daily cyanocobalamin (vitamin B-12) ? 1 daily ezetimibe 10 mg tablet ? TAKE ONE TABLET BY MOUTH EVERY DAY lovastatin 20 mg tablet ? TAKE ONE TABLET BY MOUTH EVERY DAY omeprazole 40 mg capsule,delayed release ? TAKE ONE CAPSULE BY MOUTH EVERY DAY Pepto-Bismol ? 1 tsp daily at night Probiotic ? 3 caps daily Notes: kelp and alfalfa 01/01/22 verbal review Medications Administered None recorded. Vitals Height Weight BMI Blood Pressure 5 ft 129 lbs 25.2 kg/m2 (1) 130/78 mm[H g] (2) 128/72 mm[Hg ] (3) 122/68 mm[Hg ] (4) 124/74 mm[Hg ] Results Lab Results Date Name Specimen Result Interpretation Description Value Range Status Address ? 11/24/2021 CBC W/ BLD ? Wbc 6.2 5.0-10.0 Final [facility] Auto Diff 10*3/uL 10*3/uL [facility] Lab (Internal) : [address] [place] ? ? BLD ? Rbc 4.59 4.10-5.30 Final [facility] ountry 10*6/uL 10*6/uL Hospital Lab (Internal) : [address] ? ? BLD ? Hgb 14.0 g/dL 12.0-16.0 Final [facility] g/dL Hospital L ab (Internal) : [address] ? ? BLD ? Hct 42.7 % 37.0-47.0 % Final [facility] Hospital L ab (Internal) : [address], [place] ? ? BLD ? Mcv 93.0 fL 80.0-96.0 Final [facility] Hospital L ab (Internal) : [address], [place] ? ? BLD ? Mch 30.5 pg 26.0-32.0 Final [facility] pg Hospital L ab (Internal) : [address] ? ? BLD ? Mchc 32.8 g/dL 31.0-35.0 Final [facility] g/dL Hospital L ab (Internal) : [address], [place] ? ? BLD ? Rdw 12.6 % 11.5-14.5 % Final [facility] Hospital L ab (Internal) : [address] ? ? BLD ? Plt 279 130-450 Final [facility] ntry 10*3/uL 10*3/uL Hospital Lab (Internal) : [address] ? ? BLD ? Anc 4.53 ? Final [facility] try 10*3/uL Hospital Lab (Internal) : [address] ? ? BLD High Nlr 4.23 0.00-3.20 Final [facility] L ab (Internal) : [address] ? ? BLD ? Neutro 73.5 % 40.0-75.0 % Final [facility] Hospital L ab (Internal) : [address] ? ? BLD Low Lymph 17.3 % 20.0-50.0 % Final L ab (Internal) : [address] ? ? BLD ? [place] 7.1 % 2.0-10.0 % Final L ab (Internal) : [address] ? ? BLD ? Eos 1.1 % 1.0-6.0 % Final [facility] L ab (Internal) : [address] ? ? BLD ? Baso 0.8 % 0.0-1.0 % Final [facility] L ab (Internal) : [address] ? ? BLD ? Ig 0.2 % 0.0-0.9 % Final [facility] L ab (Internal) : [address] 11/24/2021 HbA1C BLD High Ha1C 6.7 % 4.0-6.0 % Final [facility] (Hemoglob Hospita l Lab in a1C), (Interna l): Blood [address] 11/24/2021 CRP, High S ? Rcrp 1.40 mg/L 0.00-3.00 Shirin l [facility] Sensitivi mg/L Hospita l Lab ty, Serum (Learning Specialist al): or Plasma [address] 11/24/2021 CMP, S High g/r 157 mg/dL 74-106 Final [facility] Serum or mg/dL Hospital Lab Plasma (Internal) : [address] ? ? S ? Bun 14 mg/dL 7-18 mg/dL Final [facility] Hospital L ab (Internal) : [address] ? ? S ? Crea 0.9 mg/dL 0.6-1.0 Final [facility] mg/dL Hospital L ab (Internal) : [address] ? ? S ? Ca 9.1 mg/dL 8.5-10.1 Final [facility] mg/dL Hospital L ab (Internal) : [address] ? ? S ? Na 142 mmol/L 136-145 Final [facility] mmol/L Hospital L ab (Internal) : [address] ? ? S ? K 4.3 mmol/L 3.5-5.1 Final [facility] mmol/L Hospital L ab (Internal) : [address] ? ? S ? Cl 103 mmol/l 98-107 Final [facility] mmol/l Hospital L ab (Internal) : [address] ? ? S High Tco2 35.1 21.0-32.0 Final [facility] ountry mmol/L mmol/L Hospital L ab (Internal) : [address] ? ? S ? Tp 7.6 g/dL 6.4-8.2 Final [facility] ountry g/dL Hospital L ab (Internal) : [address] ? ? S ? Alb 4.0 g/dL 3.4-5.0 Final [facility] ountry g/dL Hospital L ab (Internal) : [address] ? ? S ? Tbil 0.60 mg/dL 0.20-1.00 Final [facility] mg/dL Hospital L ab (Internal) : [address] ? ? S High Alp 164 U/L 46-116 U/L Final [facility] Hospital L ab (Internal) : [address] ? ? S High Alt 81 U/L 14-59 U/L Final [facility] (Sgpt) Hospital L ab (Internal) : [address] ? ? S High Ast 53 U/L 15-37 U/L Final [facility] (Sgot) Hospital L ab (Internal) : [address] 11/24/2021 Lipase, S ? Lip 352 U/L 73-393 U/L Final [facility] Serum or Hospital Lab Plasma (Internal) : [address] Allergies Code Code System Name Reaction Severity Onset 20331226 RxNorm Benadryl ? ? ? 406752 RxNorm Fosamax ? ? ? 613009 RxNorm Tylenol ? ? ? 217229 RxNorm Zocor ? ? ? Problems Name Status Onset Date Source ? Mass of Pancreas Active 12/24/2021 ? Hyperlipidemia Active ? History Temporomandibular Joint Disorder Active ? History Focal Oral Mucinosis Active ? History Gastroesophageal Reflux Disease Active ? History Osteoporosis Active ? History Procedures Date Name Performed by ? 12/23/2021 Insertion of Biliary Stent by ERCP Infor matdarian not available 12/23/2021 Endoscopy of Esophagus with Endoscopic Ultrasound of Upper Gastrointestinal Tract Information not available Notes: bx of pancreatic mass 09/05/2015 Total Vaginal Hysterectomy Information n ot available Notes: TVH, USVVS, Cystocele repair 11/24/2021 US, Echocardiogram, Transthoracic, Radiology (Internal) Complete [address] [place] [address] (Work Place) 11/24/2021 US, Carotid Artery [facility] Radiology (Internal) [address] [place] [address] (Work Place) 11/24/2021 Autom[employer] Specialty Technician [facility] [address] [place] [address] (Work Place) Notes: Aspiration: Right breast cyst Vaccine List Vaccine Type COVID-19, mRNA, LNP-S, PF, 100 mcg/0.5 m L dose (Moderna) 10/21/2020?0.5 mL 11/17/2020?100 mcg 07/13/2021 influenza, seasonal, injectable 06/05/2012 06/13/2014?0.5 mL influenza, seasonal, injectable, preserv ative free 06/21/2013?0.5 mL pneumococcal conjugate PCV 13 01/10/2019?0.5 mL pneumococcal polysaccharide PPV23 12/24/2020?0.5 mL rubella Tdap 05/08/2009 12/24/2019?0.5 mL varicella zoster live 08/22/2012 Social History Tobacco Smoking Status Never Smoker What is the highest grade or level of school [id number] you have completed or the highest degree you have received? What type of diet are you following? REGULAR How many children do you have? 3 Are you currently employed? N Notes: ret ired Are you blind or do you have difficulty N seeing? Do you have smoke and carbon monoxide Y detectors in your home? What is your code status? 0 How much tobacco do you chew? none Performs monthly self-breast exam? N What was the date of your most recent 11/24/2021 tobacco screening? Do you have an advanced directive? Y Note s: COLST 12/24/2019 General stress level Medium What is your exercise level? Moderate What is your relationship status? Live alone or with others? with others Notes: with What is your level of alcohol consumption? None Which of your hands is dominant? Right Animal exposure? Y Do you have any pets? Y Notes: dogs Education 12 Have you been to an area known to be high N risk for COVID-19? Language Difficulties No Hard of hearing or deaf in one or both ears? N What is your level of caffeine consumption? Moderate Notes: 2 cups per day Have you recently traveled abroad? N What is your occupation? retired Family History Relation Problem Onset Age of Age Notes Father Heart disease (No Information) N/A (No Notes) Father Hypertensive disorder (No Information) N/A (N o Notes) Father Abdominal aortic aneurysm (No Information) N/A (No Notes) Father Malignant tumor of (No Information) N/A (No N otes) esophagus Sister Diabetes mellitus (No Information) N/A (No No ehsan) Mother Diabetes mellitus (No Information) N/A (No No ehsan) Brother Diabetes mellitus (No Information) N/A (No No ehsan) Brother Eating disorder (No Information) N/A (No Note s) Maternal Uncle Diabetes mellitus (No Information) N/A (No Notes) Functional Status No Impairment. Past Encounters 11/24/2021 Nausea; Lightheadedness; Near Syncope; H yperlipidemia IRVING Fong: [address] [place] [phone], Ph. History of Present Illness ? Dizziness Reported By: Patient HPI: Quality: lightheadedness. Se verity: some effect on daily activities. Duration: ; seconds to minut es. Context: non-smoker. Alleviating factors: ; sit down. Aggrava ting factors: ; unsure, but was racking and got light headed. Associated Symptoms: anxiety or unsteady feelings, headache, head pressure, jess sea; cataract Note: <div>pt reports daily episodes felling spacey, light headed, nauseous</ div><div>
</div><div>pt has started taking alfalfa, b-complex, B-12, om eprazole, caltrate.</div><div>no longer taking ezetimibe.</div><div><br&gt ;</div><div>wt down 6 lbs in 4 months.</div><div>
</div><div>Provider note: Brianne is a 75 yo female with c/o lightheadedness, pre-syncope with exertional symptoms. She notes intermittent chest pain and pressure, no radiation of pain into her arm and or jaw. She has not had a syncopal episode. She notes fatigued. She notes. She notes significant chores at home and in the yard and notes will not get lightheaded. She does endorses lightheadedness with raking and lifting things. No SOB. She notes I just don't feel well, she notes nausea, she denies vomiting. She notes her appetite has been average - she notes very bland diet. She notes taking omeprazole 20 mg qd. She notes weight loss. She notes bowel movements are normal. No blood in stool. No mucus in stool. No issues with urination. She notes heart hasnot been racing and no palpitations. She denies headaches. She notes symptoms have been going on for months.</div><div>
</div><div>She is using the book healing power of herbs by Dr. Ousmane Chu for guidance on her chronic diseases. </div><div>
& lt;/div><div>She has not been able to tolerate statin therapy. She stopped taking zetia because she notes My cholesterol did not improve. </div> Review of Systems ? Comprehensive General Adult ROS Reported By: Patient Constitutional: Constitutional: no fever, no night sweats, no significant weight gain, no significant weight loss, no exercise intolerance, no chills, no malaise Cardiovascular: Cardiovascular: no chest steph n, no arm pain on exertion, no shortness of breath when wal liu, no shortness of breath when lying down, no palpitations, no kn own heart murmur, no ankle swelling; patient notes intermittent c hest discomfort without radiation Respiratory: Respiratory: no cough, no wh eezing, no shortness of breath, no coughing up blood, no sleep apnea Gastrointestinal: Gastrointestinal: no abdomin al pain, no vomiting, no constipation, normal appetite, no diarrhea , not vomiting blood, no dyspepsia, no GERD, nausea Genitourinary: Genitourinary: no incontinen ce, no difficulty urinating, no hematuria, no increased freq uency Neurologic: Neurologic: no loss of consc iousness, no weakness, no numbness, no seizures, no migraines, no h eadaches, no tremor, no gait dysfunction, no paralysis, d izziness Physical Exam ? General Adult Exam (female) Reported By: Patient Constitutional: General Appearance: healthy- appearing, well-nourished, well-developed. Level of Dis tress: NAD. Ambulation: ambulating normally Psychiatric: Insight: good judgement. Men alessandra Status: active and alert, normal mood, normal affect. Orienta tion: to time, to place, to person. Memory: recent memory normal , remote memory normal Head: Head: normocephalic, atrauma tic Neck: Neck: supple, trachea midlin e, no masses, FROM. Lymph Nodes: no cervical LAD, no supraclavic ular LAD Lungs: Respiratory effort: no dyspn ea. Auscultation: breath sounds normal, good air movement, CTA excep t as noted, no wheezing, no rales/crackles, no rhonchi Cardiovascular: Heart Auscultation: RRR, nor mal S1, normal S2, no murmurs, no rubs, no gallops Abdomen: Bowel Sounds: normal. Inspec tion and Palpation: soft, non-distended, no tenderness , no guarding, no rebound tenderness, no masses, no CVA tenderness Musculoskeletal:: Motor Strength and Tone: nor mal motor strength, normal tone. Joints, Bones, and Muscles: normal movement of all extremities. Extremities: no edema Neurologic: Gait and Station: normal gai t, normal station. Cranial Nerves: grossly intact
--- OUTSIDE RECORDS SUMMARY | 2022-01-26 14:14 | XMS_ITS | Encounter Summary ---
:1945 Author Care Team Providers Name Role Phone Kimmy VILLATORO Primary Care Provider [phone] Reason for Visit Jaundice Assessment and Plan 1. Jaundice painless jaundice with c/o intermittent nausea, upset stomach without abdominal pain or vomiting. She recently started lovastatin 20 mg qd on 11/24/21 in addition to her zetia. She did have a mild increase her LFTs on prior examination 11/24/21. She has a h/o statin intolerance b/c of muscle aches, this has never been consistent with rabdo or statin induced myopathy, prior cpk have been normal. She has had dark urine, red at times. ddx: malignancy vs. rabdo vs. hemolysis Proceed with bloodwork and urine, stop a ll medications and supplements. Advised no apap or etoh. Proceed with STAT CT abd/pelvis. Recommendations pending work up. Advised Brianne to seek care in ER for abdominal pain, vomiting, fever. Reviewed case with Dr. Luis who is in agreement with evaluation and treatment plan. ? CT, abdomen + pelvis, w/ contrast - [age] yo female with painless jaundice x 2 days there is associated nausea without vomit ing. Mild tenderness in the RUQ. R/O pancreatic mass, gallbladder dz. ? hepatic function panel, serum ? BMP, serum or plasma ? CK (creatine kinase), total, serum ? CBC w/ auto diff ? hepatitis panel (A+B+C), acute, serum ? CK (creatine kinase) isoenzymes, seru m ? CRP, high sensitivity, serum or plasm a ? ESR (erythrocyte sedimentation rate), blood ? urinalysis, dipstick, reflex micro ? aldolase, serum ? phosphorus, serum or plasma ? lipase, serum or plasma Discussion Note: None recorded.Patient educational handouts: No information available. Plan of Care Reminders Provider Appointments Consult 45 02/03/2022 2:15PM Gómez Chavez MD ? Return to Office on or around Phi Issa MD 11/01/2022 Lab Hepatic Function Panel, 12/14/2021 [facility] Serum Hospital Lab (Internal) ? BMP, Serum or Plasma 12/14/2021 [facility] Hospital Lab (Internal) ? CK (Creatine Kinase), 12/14/2021 [facility] untry Total, Serum Hospital Lab (Internal) ? CBC W/ Auto Diff 12/14/2021 [facility] Hospital Lab (Internal) ? Hepatitis Panel (A+B+C), 12/14/2021 [facility] Acute, Serum Hospital Lab (Internal) ? CK (Creatine Kinase) 12/14/2021 [facility] Isoenzymes, Serum Hospital Lab (Internal) ? CRP, High Sensitivity, 12/14/2021 [facility] ountry Serum or Plasma Hospital Lab (Internal) ? ESR (Erythrocyte 12/14/2021 [facility] Sedimentation Rate), Blood Hospi alessandra Lab (Internal) ? Urinalysis, Dipstick, 12/14/2021 [facility] Reflex Micro Hospital Lab (Internal) ? Aldolase, Serum 12/14/2021 [facility] Lab (Internal) ? Phosphorus, Serum or 12/14/2021 [facility] Plasma Hospital Lab (Internal) ? Lipase, Serum or Plasma 12/14/2021 [facility] Lab (Internal) Referral None recorded. ? ? Procedures None recorded. ? ? Surgeries None recorded. ? ? Imaging CT, Abdomen + Pelvis, W/ 12/14/2021 [facility] Hospital Radiolo gy (Internal) Medications Name Start Date ? ? alfalfa [...] Height Weight BMI Blood Pressure 5 ft 127 lbs 4.8 oz 24.9 kg/m2 104/66 mm[Hg] Results Lab Results Date Name Specimen Result Interpretation Description Value Range Status Address ? 12/14/2021 CBC W/ Auto BLD ? Wbc 5.4 5.0-10.0 Final [facility] Diff 10*3/uL 10*3/uL [facility] L ab (Internal) : [address] ? ? BLD ? Rbc 4.49 4.10-5.30 Final [facility] 10*6/uL 10*6/uL [facility] L ab (Internal) : [address] ? ? BLD ? Hgb 13.6 g/dL 12.0-16.0 Final Nort h g/dL [facility] L ab (Internal) : [address] ? ? BLD ? Hct 42.4 % 37.0-47.0 Final [facility] L ab (Internal) : [address] ? ? BLD ? Mcv 94.4 fL 80.0-96.0 Final [facility] L ab (Internal) : [address] ? ? BLD ? Mch 30.3 pg 26.0-32.0 Final [facility] L ab (Internal) : [address] ? ? BLD ? Mchc 32.1 g/dL 31.0-35.0 Final Nort h g/dL [facility] L ab (Internal) : [address] t ? ? BLD High Rdw 14.9 % 11.5-14.5 Final [facility] L ab (Internal) : [address] t ? ? BLD ? Plt 246 130-450 Final [facility] 10*3/uL 10*3/uL [facility] L ab (Internal) : [address] ? ? BLD ? Anc 3.99 ? Final [facility] 10*3/uL [facility] L ab (Internal) : [address] t ? ? BLD High Nlr 5.12 0.00-3.20 Final [facility] L ab (Internal) : [address] ? ? BLD ? Neutro 74.1 % 40.0-75.0 Final [facility] L ab (Internal) : [address], [place] ? ? BLD Low Lymph 14.5 % 20.0-50.0 Final [facility] L ab (Internal) : [address] t ? ? BLD ? [place] 8.2 % 2.0-10.0 Final [facility] L ab (Internal) : [address] t ? ? BLD ? Eos 1.5 % 1.0-6.0 % Final [facility] L ab (Internal) : [address] ? ? BLD High Baso 1.1 % 0.0-1.0 % Final [facility] L ab (Internal) : [address] t ? ? BLD ? Ig 0.6 % 0.0-0.9 % Final [facility] ab (Internal) : [address] t 12/14/2021 Urinalysis, UR ? UA-color yellow pale Final [facility] Dipstick, yellow [facility] Reflex Micro Hosp ital Lab (Internal) : [address] t ? ? UR ? UA-appear clear clear Final [facility] L ab (Internal) : [address] t ? ? UR ? UA-gluc negative negative Final [facility] L ab (Internal) : [address] ? ? UR ? UA-bili negative negative Final [facility] ab (Internal) : [address] ? ? UR ? UA-ketone negative negative [facility] [address] ? ? UR ? UA-spec <1.005 1.003-1.0 Final [facility] [address] [place] [address] L ab (Internal) : [address] ? ? UR ? UA-blood negative negative Final [facility] L ab (Internal) : [address] ? ? UR ? UA-pH 6.0 [pH] 4.6-8.0 Final Martin [pH] [facility] L ab (Internal) : [address] t ? ? UR ? UA-prot negative negative Final [facility] ab (Internal) : [address] ? ? UR ? UA-urobil normal normal Final [facility] L [facility] (Internal) : [address] t ? ? UR ? UA-nitrit negative negative Final No rth e [facility] Hospital L ab (Internal) : [address] ? ? UR ? UA-leuk negative negative Final Nort h Est [facility] Hospital L ab (Internal) : [address] 12/14/2021 BMP, Serum or S High g/r 158 mg/dL 74-106 Fin al [facility] Plasma mg/dL [facility] L [facility] (Internal) : [address] ? ? S ? Bun 10 mg/dL 7-18 Final [facility] mg/dL [facility] Hospital L ab (Internal) : [address] ? ? S ? Crea 0.7 mg/dL 0.6-1.0 Final [facility] mg/dL [facility] L ab (Internal) : [address] ? ? S ? Ca 9.3 mg/dL 8.5-10.1 Final [facility] mg/dL [facility] Hospital L ab (Internal) : [address] ? ? S ? Na 138 mmol/L 136-145 Final [facility] mmol/L [facility] L ab (Internal) : [address] ? ? S ? K 4.2 mmol/L 3.5-5.1 Final [facility] mmol/L [facility] L ab (Internal) : [address] ? ? S ? Cl 101 mmol/l 98-107 Final [facility] mmol/l [facility] L ab (Internal) : [address] ? ? S ? Tco2 28.3 21.0-32.0 Final [facility] mmol/L mmol/L [facility] Hospital L ab (Internal) : [address] 12/14/2021 Hepatic S High Tbil 9.80 mg/dL 0.20-1.00 Final [facility] Function Panel, mg/dL [facility] Hospital L ab (Internal) : [address] t ? ? S High Dbil 7.74 mg/dL 0.00-0.20 Final Nor th mg/dL [facility] Hospital L ab (Internal) : [address] ? ? S High Alp 430 U/L 46-116 Final [facility] U/L [facility] Hospital L ab (Internal) : [address] ? ? S High Alt 282 U/L 14-59 U/L Final [facility] (Sgpt) [facility] L ab (Internal) : [address] ? ? S High Ast 131 U/L 15-37 U/L Final [facility] (Sgot) [facility] L ab (Internal) : [address] ? ? S High Ggt 1173 U/L 5-55 U/L Final [facility] L ab (Internal) : [address] ? ? S ? Tp 7.9 g/dL 6.4-8.2 Final [facility] g/dL [facility] L ab (Internal) : [address] ? ? S ? Alb 4.0 g/dL 3.4-5.0 Final [facility] g/dL [facility] L ab (Internal) : [address] [facility] 12/14/2021 CK (Creatine S ? Cpk 39 U/L 26-192 Final [facility] Kinase), Total, U/L C [facility] L ab (Internal) : [address] [facility] 12/14/2021 ESR BLD ? Esr 4 mm/h 0-30 mm/h Final [facility] th (Erythrocyte Coun try Sedimentation Hos pital Lab Rate), Blood (Int ernal): [address] [facility] 12/14/2021 Lipase, Serum S ? Lip 153 U/L 73-393 Final [facility] or Plasma U/L [facility] L ab (Internal) : [address] [facility] 12/14/2021 CRP, High S High Rcrp 3.78 mg/L 0.00-3.00 [facility] Sensitivity, mg/L Coun try Serum or Plasma H ospital Lab (Internal) : [address] [facility] 12/14/2021 Phosphorus, S ? Phos 3.1 mg/dL 2.6-4.7 Shirin l [facility] Serum or Plasma mg/dL [facility] L ab (Internal) : [address] [facility] 12/14/2021 Hepatitis Panel S ? Hepatitis negative negat angelo Final [facility] (A+B+C), Acute, a IgM Ab, [facility] Serum [facility] L ab (Internal) : [address] ? ? S ? Hbs negative negative Final [facility] Antigen, [facility] L ab (Internal) : [address] ? ? S ? Hbc IgM negative negative Final Nort h Ab, S [facility] L ab (Internal) : [address] ? ? S ? HCV Ab, S negative negative Final No rth [facility] L ab (Internal) : [address] 12/14/2021 Aldolase, Serum S High Aldolase, 10.3 U/L <7.7 U/L Final [facility] L ab (Internal) : [address] 12/14/2021 CK (Creatine S ? Creatine 38 U/L 26 - 192 Fi [facility] Kinase) Kinase U/L [facility] Isoenzymes, (CK), S Hosp ital Lab Serum (Internal) : [address] ? ? S ? CK if CK ? Final [facility] Isoenzyme result IS Coun try Elec, <100, Hospital L ab Specimen isoenzyme (Inte rnal): Only will not [address] performed. Allergies Code Code System Name Reaction Severity Onset 20331226 RxNorm Benadryl ? ? ? 11420124 RxNorm Fosamax ? ? ? 20231023 RxNorm Tylenol ? ? ? RxNorm Zocor ? ? ? Problems Name [...] USVVS, Cystocele repair 11/24/2021 US, Echocardiogram, Transthoracic, [facility] Radiology (Internal) Complete [address] [place] [address] (Work Place) 11/24/2021 US, Carotid Artery [facility] Radiology (Internal) [address] [place] [address] (Work Place) 11/24/2021 [employer] [facility] Radiology (Internal) [address] [place] [address] (Work Place) 11/25/2021 US, Abdomen, Limited [facility] Rad[facility] (Internal) [address] [place] [address] (Work Place) 12/14/2021 CT, Abdomen + Pelvis, W/ Contrast [facility] Radiology (Internal) [address] [place] [address] (Work Place) Notes: Aspiration: Right breast cyst [...] the highest grade or level of school [id number] you have completed or the highest degree [...] Notes) Functional Status No Impairment. Past Encounters 12/14/2021 Jaundice IRVING Fong: [address] [place] [phone], Ph. 11/24/2021 Nausea; Lightheadedness; Near Syncope; H yperlipidemia IRVING Fong: [address] [place] [phone], Ph. History of Present Illness ? Jaundice Reported By: Patient HPI: Duration: abrupt onset Notes: <div>per pt she noticed yell ow skin yesterday. Has has n/v intermittently for months.</ div> Note: <div>Brianne is a 76 yo female who presents acutely with 2 days of jaundice. Patient notes her and family commented on her skin color. She has had ongoing nausea without vomiting or abdpain. She notes appetite has been poor. Mild weight loss. She was seen 11/25/21 for these sxs. She recently restarted lovastatin 20 mg qd with zetia for significant hyerlipidemia. She previously had beenintolerant of statin therapy b/c of muscle aches. No prior rabdo or dx of statin induced myopathy, review of CPK from [phone] has been normal. She did start statin therapy 11/25/21. </div><div>
</div><div>She denies muscle aches or pains. No muscle weakness. She deniesf/c. She notes her urine has been dark in color, red but improved over the last day. </div>< div>
</div><div>She notes normal BM's. No blood in stool. No vomiting but continues to feel nauseous. She has decreased her supplement intake since last visit. No edema in lower extremities. No dysuria. No foamy urine. </div><div>
</div><div>She notes this has never happened previously. She does not take apap or drink etoh. </div> Review of Systems ? Comprehensive General Adult ROS Reported By: Patient Constitutional: Constitutional: no fever, no night sweats, no significant weight gain, no exercise intoleranc e, no chills, no malaise, weight loss (2 lbs) Cardiovascular: Cardiovascular: no chest steph n, no arm pain on exertion, no shortness of breath when wal liu, no shortness of breath when lying down, no palpitations, no kn own heart murmur, no ankle swelling Respiratory: Respiratory: no cough, no wh eezing, no shortness of breath, no coughing up blood, no sleep apnea Gastrointestinal: Gastrointestinal: no abdomin al pain, no vomiting, no constipation, normal appetite, no diarrhea , not vomiting blood, no dyspepsia, no GERD, nausea Musculoskeletal: Musculoskeletal: no muscle a ches, no muscle weakness, no arthralgias/joint pain, no b ack pain, no swelling in the extremities, no neck pain, n o difficulty walking, no cramps, no osteoporosis, no fractures Integumentary: Skin: no abnormal mole, no r ashes, no laceration, no non-healing areas, no changes in hair/na ils, no psoriasis, no change in skin color, no breast lump, jaund ice Neurologic: Neurologic: no loss of consc iousness, no weakness, no numbness, no seizures, no migraines, no h eadaches, no tremor, no gait dysfunction, no paralysis, d izziness Physical Exam ? General Adult Exam (female) Reported By: Patient Constitutional: General Appearance: healthy- appearing, well-nourished, well-developed. Level of Dis tress: NAD. Ambulation: ambulating normally Head: Head: normocephalic, atrauma tic Eyes: Lids and Conjunctivae: non-i njected, no discharge, no pallor. Sclerae: icteric Lungs: Respiratory effort: no dyspn ea. Auscultation: breath sounds normal, good air movement, CTA excep t as noted, no wheezing, no rales/crackles, no rhonchi Cardiovascular: Heart Auscultation: RRR, nor mal S1, normal S2, no murmurs, no rubs, no gallops Abdomen: Bowel Sounds: normal. Inspec tion and Palpation: soft, non-distended, no guarding, no rebound tenderness, no masses, no CVA tenderness, RUQ tenderne ss Musculoskeletal:: Joints, Bones, and Muscles: normal movement of all extremities. Extremities: no edema Neurologic: Gait and Station: normal gai t, normal station. Cranial Nerves: grossly intact
--- OUTSIDE RECORDS SUMMARY | 2022-01-26 14:14 | XMS_ITS | Encounter Summary ---
:1945 Author Care Team Providers Name Role Phone Kimmy VILLATORO Primary Care Provider [phone] Reason for Visit None recorded. Assessment and Plan 1. Mass of pancreas 76 yo female who presented with painles s jaundice 12/14/21, found to have a pancreatic mass, underwent EUS and ERCP with CBD stent on 12/23/21 this was c/b acute cholecystitis. Patient was admitted to [facility] for acute cholecystitis 12/26/21 to 12/28/21, she underwent cholecystostomy and received IV zosyn and vancomycin. Cholecystostomy was advised vs. cholecystectomy as hopeful plan of pancreatic mass exci jayne with [facility]. She has follow up with surgical oncology , oncology at [facility] 01/05/22. Patient notes she is coping well. Her fa jacqueline and friends are supportive and she has a strong grecia. She notes sleeping well, appetite improved. 2. Cholecystitis As above, doing well s/p cholecystostom y placement. Her Jaundice has improved, Tbili has trended down. Definitive management with [facility] once plan for pancreatic mass is better understood. 3. Jaundice Repeat labs today, Tbili trended down t o 6 at discharge. ? CMP, serum or plasma ? CBC w/ auto diff Discussion Note: None recorded.Patient educational handouts: No information available. Plan of Care Reminders Provider Appointments Consult 02/03/2022 2:15PM Gómez Chavez MD ? Return to Office on or around Phi Issa MD 11/01/2022 Lab CMP, Serum or Plasma 01/01/2022 [facility] Lab (Internal) ? CBC W/ Auto Diff 01/01/2022 [facility] Lab (Internal) Referral None recorded. ? ? Procedures None recorded. ? ? Surgeries None recorded. ? ? Imaging None recorded. ? ? Medications Name Start Date ? ? alfalfa [...] Height Weight BMI Blood Pressure 5 ft 130 lbs 14.4 oz 25.6 kg/m2 122/72 mm[Hg] Results Lab Results Date Name Specimen Result Interpretation Description Value Range Status Address ? 01/01/2022 CBC W/ BLD ? Wbc 9.7 5.0-10.[address] [facility] Auto Diff 10*3/uL 10*3/uL [facility] Lab (Internal) : [address] ? ? BLD Low Rbc 4.02 4.10-5.30 Final [facility] ountry 10*6/uL 10*6/uL Hospital Lab (Internal) : [address] ? ? BLD ? Hgb 12.0 g/dL 12.0-16.[address] [facility] g/dL Hospital L ab (Internal) : [address] ? ? BLD ? Hct 37.6 % 37.0-47.0 % Final [facility] Hospital L ab (Internal) : [address] ? ? BLD ? Mcv 93.5 fL 80.0-96.0 Final [facility] Hospital L [facility] (Internal) : [address] ? ? BLD ? Mch 29.9 pg 26.0-32.0 Final [facility] pg Hospital L ab (Internal) : [address] ? ? BLD ? Mchc 31.9 g/dL 31.0-35.[address] [facility] g/dL Hospital L ab (Internal) : [address] ? ? BLD High Rd[address] 17.8 % 11.5-14.5 % Final [facility] Hospital L ab (Internal) : [address] ? ? BLD ? Plt 407 130-450 Final [facility] ntry 10*3/uL 10*3/uL Hospital Lab (Internal) : [address] 01/01/2022 CMP, Serum S High g/r 164 mg/dL 74-106 Final [facility] or Plasma mg/dL Hospita l Lab (Internal) : [address] ? ? S ? Bun 11 mg/dL 7-18 mg/dL Final [facility] Hospital L ab (Internal) : [address] ? ? S ? Crea 0.7 mg/dL 0.6-1.0 Final [facility] mg/dL Hospital L ab (Internal) : [address] ? ? S Low Ca 8.2 mg/dL 8.5-10.1 Final [facility] mg/dL Hospital L ab (Internal) : [address] ? ? S ? Na 136 mmol/L 136-145 Final [facility] mmol/L Hospital L ab (Internal) : [address] ? ? S ? K 4.5 mmol/L 3.5-5.1 Final [facility] mmol/L Hospital L ab (Internal) : [address] ? ? S ? Cl 102 mmol/l 98-107 Final [facility] mmol/l Hospital L ab (Internal) : [address] ? ? S ? Tco2 29.1 21.0-32.0 Final [facility] ountry mmol/L mmol/L Hospital L ab (Internal) : [address] ? ? S Low Tp 6.0 g/dL 6.4-8.2 Final [facility] ountry g/dL Hospital L ab (Internal) : [address] ? ? S Low Alb 2.6 g/dL 3.4-5.0 Final [facility] ountry g/dL Hospital L ab (Internal) : [address] ? ? S High Tbil 4.00 mg/dL 0.20-1.00 Final [facility] mg/dL Hospital L ab (Internal) : [address] ? ? S High Alp 1318 U/L 46-116 U/L Final [facility] Hospital L ab (Internal) : [address] [place] ? ? S High Alt 317 U/L 14-59 U/L [facility] (pt) Hospital L ab (Internal) : [address] ? ? S High Ast 342 U/L 15-37 U/L [facility] (Sgot) [facility] L ab (Internal) : [address] Allergies Code Code System Name Reaction Severity Onset 20331226 RxNorm Benadryl ? ? ? 320784 RxNorm Fosamax ? ? ? [id number] RxNorm [...] ot available Notes: TVH, USVVS, Cystocele repair 12/14/2021 CT, Abdomen + Pelvis, W/ Contrast [facility] (Internal) [address] [place], [place] [id number] (Work Place) Notes: Aspiration: Right breast cyst [...] the highest grade or level of school EE60094-8 you have completed or the highest degree [...] Notes) Functional Status No Impairment. Past Encounters 01/01/2022 Mass of Pancreas; Cholecystitis; Jaundic e IRVING Fong: [address] [place] [phone], Ph. 12/14/2021 Jaundice IRVING Fong: [address] [place] [phone], Ph. History of Present Illness Note: <div>76 yo female ppmhx of gerd, hld who had several months of nausea, ERMA without pain, initially seen for these complaints on 11/24/21. </div><div>
</div><div>Examination was benign. W/U notable for mild elevation in LFTs, a RUQ US was ordered. </div><div>
</div><div>Prior to patient's scheduled RUQ US she presented withpainless jaundice. Tbili was 9.8, LFTs ALP 430, ALT 282, AST 131, GGT 1173. CT abd/pelvis demonstrated a pancreatic neck mass concerning for malignancy. </div><div>
</div><div>She was seen at [facility] 12/23/21 for EUS, ERCP, stent placement for biliary obstruction - CBD stent. </div><div>
</div><div>She developed RUQ abd pain 48 hours after stent placement and present to ER. Tbili 13, ALP 411, ALT 185, AST 119. CT abd/pelvis was concerning for acute cholecystitis. </div><div>
</div><div>Patient was transferred to [facility]. She was started on IV Zosyn and Vancomycin. She had a cholecystostomy 12/27/21. Her WBCtrended down and upon discharge her Tbili was 6.7. </div><div>
</div><div>Patient notes she is feeling better every day. She denies abd pain. She notes bowel movements have been regular. She notes urinating well. Her appetite has been okay. She is eating soup and ensure shakes. She reports nausea has improved. No vomiting. No lightheadedness/dizzine ss. She denies f/c. </div><div>
</div><div>She notes her ishelping with her cholecystostomy bag. She notes continues to drain green fluid. She has VNA coming in as well. No redness, warmth or discharge around the drain. </div> Review of Systems ? Comprehensive General Adult ROS Reported By: Patient Constitutional: Constitutional: no fever, no night sweats, no significant weight loss, no exercise intoleranc e, no chills, no malaise, weight gain (3lbs) Cardiovascular: Cardiovascular: no chest steph n, no arm pain on exertion, no shortness of breath when wal liu, no shortness of breath when lying down, no palpitations, no kn own heart murmur, no ankle swelling Respiratory: Respiratory: no cough, no wh eezing, no shortness of breath, no coughing up blood, no sleep apnea Gastrointestinal: Gastrointestinal: no abdomin al pain, no nausea, no vomiting, no constipation, no diarrhea, n ot vomiting blood, no dyspepsia, no GERD, change in appetite Genitourinary: Genitourinary: no incontinen ce, no difficulty urinating, no hematuria, no increased freq uency Integumentary: Skin: no abnormal mole, no r ashes, no laceration, no non-healing areas, no changes in hair/na ils, no psoriasis, no change in skin color, no breast lump, jaund ice Neurologic: Neurologic: no loss of consc iousness, no weakness, no numbness, no seizures, no dizziness, no m igraines, no headaches, no tremor, no gait dysfunction, no paralys is Physical Exam ? General Adult Exam (female) Reported By: Patient Constitutional: General Appearance: healthy- appearing, well-nourished, well-developed. Level of Dis tress: NAD. Ambulation: ambulating normally Head: Head: normocephalic, atrauma tic Eyes: Lids and Conjunctivae: non-i njected, no discharge, no pallor. Sclerae: non-icteric Lungs: Respiratory effort: no dyspn ea. Auscultation: breath sounds normal, good air movement, CTA excep t as noted, no wheezing, no rales/crackles, no rhonchi Cardiovascular: Heart Auscultation: RRR, nor mal S1, normal S2, no murmurs, no rubs, no gallops Abdomen: Bowel Sounds: normal. Inspec tion and Palpation: soft, non-distended, no tenderness , no guarding, no rebound tenderness, no masses, no CVA tenderness ; RUQ there is a cholecystostomy tube, there is no surrounding redn ess, warmth or discharge. There is yellow/green discharge in ch olecystostomy bag Musculoskeletal:: Joints, Bones, and Muscles: normal movement of all extremities. Extremities: no edema Neurologic: Gait and Station: normal gai t, normal station. Cranial Nerves: grossly intact Skin: Inspection and palpation: ja undice
[2022-02-05 08:43] LABS: Abs Immature Grans 0.02 10^3/uL (0.0-0.06); Absolute Basophil Count 0.03 10^3/uL (0.0-0.2); Absolute Eosinophil Count 0.27 10^3/uL (0.0-0.7); Absolute Lymphocyte Count 0.82 10^3/uL (1.2-3.4); Absolute Monocyte Count 0.51 10^3/uL (0.1-0.8); Absolute Neutrophil Count 4.43 10^3/uL (1.2-6.7); Basophils % 0.5; Eosinophils % 4.4; HCT 35.7 % (36.0-46.0); HGB 11.9 g/dL (11.2-15.7); Immature Grans % 0.3; Lymphocytes % 13.5; MCH 31.7 pg (27.0-33.0); MCHC 33.3 % (32.0-36.0); MCV 95 fL (80-95); MPV 9.6 fL (8.0-11.0); Monocytes % 8.4; Neutrophils % 72.9; Platelet Count 280 10^3/uL (130-400); RBC 3.75 10^6/uL (3.93-5.22); RDW-SD 48.9 fL; WBC 6.08 10^3/uL (4.4-10.8)
[2022-02-05 09:01] LABS: ALT 101 U/L (14-59); AST 36 U/L (15-37); Albumin 3.6 g/dL (3.4-5.0); Alkaline Phosphatase 464 U/L (46-116); Anion Gap 6.7 mmol/L (3-11); BUN 15 mg/dL (7-18); Bilirubin, Total 0.7 mg/dL (0.2-1.0); CO2 28.3 mmol/L (21.0-32.0); CREATININE 0.8 mg/dL (0.55-1.02); Calcium 8.8 mg/dL (8.5-10.1); Chloride 105 mmol/L (98-107); Glucose 119 mg/dL (74-106); Potassium 4.5 mmol/L (3.5-5.1); Sodium 140 mmol/L (136-145); Total Protein 6.9 g/dL (6.4-8.2)
[2022-02-05] MEDS: Normal Saline Flush 10 ML SYR IVP (09:09)
[2022-02-07] MEDS: Normal Saline Flush 10 ML SYR IVP (13:03)
[2022-02-07] MEDS: Heparin 500 UNITS/5 ML SYRINGE IV (13:03)
[2022-02-07 13:04] VITALS: BP 115/65; PULSE 68; RESP 18; TEMP 36.4; O2SAT 98
[2022-02-08 10:01] LABS: CA 19-9 25 U/mL (<35)
== END 2022-02-18 23:59 | disposition home or self-care (01) ==
LOC: INF 08:30
PROVIDERS: Visit Provider Internal Medicine Hematology & Oncology
DX: C25.0 Malignant neoplasm of head of pancreas (principal); Z45.2 Encounter for adjustment and management of vascular access device
CPT/HCPCS: 36591; 80053; 96523; 85025; 86301

== ENCOUNTER 2022-03-12 01:41 | Outpatient (RCR) | payer MEDICARE, SELFPAY ==
[2022-02-19 00:10] VITALS: BP 115/65; PULSE 68; RESP 18; TEMP 36.4
[2022-02-19] MEDS: Normal Saline Flush 10 ML SYR IVP (07:40)
[2022-02-19 07:49] LABS: Abs Immature Grans 0.03 10^3/uL (0.0-0.06); Absolute Basophil Count 0.02 10^3/uL (0.0-0.2); Absolute Eosinophil Count 0.12 10^3/uL (0.0-0.7); Absolute Lymphocyte Count 0.61 10^3/uL (1.2-3.4); Absolute Monocyte Count 0.49 10^3/uL (0.1-0.8); Absolute Neutrophil Count 4.19 10^3/uL (1.2-6.7); Basophils % 0.4; Eosinophils % 2.2; HCT 37.4 % (36.0-46.0); HGB 11.9 g/dL (11.2-15.7); Immature Grans % 0.5; Lymphocytes % 11.2; MCH 31.1 pg (27.0-33.0); MCHC 31.8 % (32.0-36.0); MCV 98 fL (80-95); MPV 9.6 fL (8.0-11.0); Neutrophils % 76.7; Platelet Count 261 10^3/uL (130-400); RBC 3.83 10^6/uL (3.93-5.22); RDW 13.8 % (11.7-14.6); RDW-SD 49.3 fL; WBC 5.46 10^3/uL (4.4-10.8)
[2022-02-19 08:04] LABS: ALT 143 U/L (14-59); AST 48 U/L (15-37); Albumin 3.3 g/dL (3.4-5.0); Alkaline Phosphatase 948 U/L (46-116); Anion Gap 6.6 mmol/L (3-11); BUN 11 mg/dL (7-18); Bilirubin, Total 0.9 mg/dL (0.2-1.0); CO2 26.4 mmol/L (21.0-32.0); CREATININE 0.8 mg/dL (0.55-1.02); Calcium 8.9 mg/dL (8.5-10.1); Chloride 104 mmol/L (98-107); Glucose 138 mg/dL (74-106); Potassium 4.5 mmol/L (3.5-5.1); Sodium 137 mmol/L (136-145)
[2022-02-22 09:42] LABS: CA 19-9 45 U/mL (<35)
[2022-02-26 07:51] LABS: Abs Immature Grans 0.03 10^3/uL (0.0-0.06); Absolute Basophil Count 0.06 10^3/uL (0.0-0.2); Absolute Eosinophil Count 0.18 10^3/uL (0.0-0.7); Absolute Lymphocyte Count 0.74 10^3/uL (1.2-3.4); Absolute Monocyte Count 0.45 10^3/uL (0.1-0.8); Absolute Neutrophil Count 5.27 10^3/uL (1.2-6.7); Basophils % 0.9; Eosinophils % 2.7; HCT 39.7 % (36.0-46.0); HGB 12.5 g/dL (11.2-15.7); Immature Grans % 0.4; MCH 30.9 pg (27.0-33.0); MCHC 31.5 % (32.0-36.0); MCV 98 fL (80-95); MPV 9.8 fL (8.0-11.0); Monocytes % 6.7; Neutrophils % 78.3; Platelet Count 312 10^3/uL (130-400); RBC 4.04 10^6/uL (3.93-5.22); RDW 13.9 % (11.7-14.6); RDW-SD 50.6 fL; WBC 6.73 10^3/uL (4.4-10.8)
[2022-02-26 08:11] LABS: ALT 225 U/L (14-59); AST 157 U/L (15-37); Albumin 3.5 g/dL (3.4-5.0); Anion Gap 9.2 mmol/L (3-11); BUN 15 mg/dL (7-18); Bilirubin, Total 0.8 mg/dL (0.2-1.0); CO2 27.8 mmol/L (21.0-32.0); CREATININE 0.8 mg/dL (0.55-1.02); Calcium 8.8 mg/dL (8.5-10.1); Chloride 102 mmol/L (98-107); Glucose 232 mg/dL (74-106); Potassium 4.5 mmol/L (3.5-5.1); Sodium 139 mmol/L (136-145); Total Protein 7.3 g/dL (6.4-8.2)
[2022-02-26 08:12] LABS: Alkaline Phosphatase 1343 U/L (46-116)
[2022-02-26] MEDS: Normal Saline Flush 10 ML SYR IVP (08:20)
[2022-02-28] MEDS: Heparin 500 UNITS/5 ML SYRINGE IV (13:00)
[2022-02-28] MEDS: Normal Saline Flush 10 ML SYR IVP (13:00)
[2022-03-01 13:59] LABS: CA 19-9 41 U/mL (<35)
[2022-03-12] MEDS: Normal Saline Flush 10 ML SYR IVP (07:50)
[2022-03-12 08:03] LABS: Abs Immature Grans 0.02 10^3/uL (0.0-0.06); Absolute Basophil Count 0.05 10^3/uL (0.0-0.2); Absolute Eosinophil Count 0.16 10^3/uL (0.0-0.7); Absolute Lymphocyte Count 0.82 10^3/uL (1.2-3.4); Absolute Neutrophil Count 4.93 10^3/uL (1.2-6.7); Basophils % 0.8; Eosinophils % 2.5; HCT 39.7 % (36.0-46.0); HGB 12.8 g/dL (11.2-15.7); Immature Grans % 0.3; Lymphocytes % 12.7; MCH 31.2 pg (27.0-33.0); MCHC 32.2 % (32.0-36.0); MCV 97 fL (80-95); MPV 9.8 fL (8.0-11.0); Monocytes % 7.7; Platelet Count 197 10^3/uL (130-400); RDW 13.4 % (11.7-14.6); WBC 6.48 10^3/uL (4.4-10.8)
[2022-03-12 08:17] LABS: ALT 96 U/L (14-59); AST 44 U/L (15-37); Albumin 3.7 g/dL (3.4-5.0); Alkaline Phosphatase 418 U/L (46-116); Anion Gap 6.2 mmol/L (3-11); BUN 15 mg/dL (7-18); Bilirubin, Total 0.6 mg/dL (0.2-1.0); CO2 29.8 mmol/L (21.0-32.0); CREATININE 0.8 mg/dL (0.55-1.02); Calcium 8.9 mg/dL (8.5-10.1); Chloride 104 mmol/L (98-107); Glucose 181 mg/dL (74-106); Potassium 4.2 mmol/L (3.5-5.1); Sodium 140 mmol/L (136-145); Total Protein 6.9 g/dL (6.4-8.2)
[2022-03-14] MEDS: Normal Saline Flush 10 ML SYR IVP (13:27)
[2022-03-14] MEDS: Heparin 500 UNITS/5 ML SYRINGE IV (13:27)
[2022-03-15 10:23] LABS: CA 19-9 31 U/mL (<35)
== END 2022-03-21 23:59 | disposition home or self-care (01) ==
LOC: INF 01:41
PROVIDERS: Visit Provider Internal Medicine Hematology & Oncology
DX: C25.0 Malignant neoplasm of head of pancreas (principal); Z45.2 Encounter for adjustment and management of vascular access device
CPT/HCPCS: 36591; 80053; 96523; 85025; 86301

== ENCOUNTER 2022-04-09 00:46 | Outpatient (RCR) | payer MEDICARE, SELFPAY ==
[2022-03-22 00:05] VITALS: BP 115/65; PULSE 68; RESP 18; TEMP 36.4
[2022-03-26] MEDS: Normal Saline Flush 10 ML SYR IVP (08:29)
[2022-03-26 08:39] LABS: Abs Immature Grans 0.02 10^3/uL (0.0-0.06); Absolute Basophil Count 0.04 10^3/uL (0.0-0.2); Absolute Eosinophil Count 0.08 10^3/uL (0.0-0.7); Absolute Lymphocyte Count 0.74 10^3/uL (1.2-3.4); Absolute Monocyte Count 0.53 10^3/uL (0.1-0.8); Absolute Neutrophil Count 4.06 10^3/uL (1.2-6.7); Basophils % 0.7; Eosinophils % 1.5; HCT 38.3 % (36.0-46.0); HGB 12.3 g/dL (11.2-15.7); Immature Grans % 0.4; Lymphocytes % 13.5; MCH 30.8 pg (27.0-33.0); MCHC 32.1 % (32.0-36.0); MCV 96 fL (80-95); MPV 9.7 fL (8.0-11.0); Monocytes % 9.7; Neutrophils % 74.2; Platelet Count 233 10^3/uL (130-400); RDW 13.5 % (11.7-14.6); RDW-SD 47.6 fL; WBC 5.47 10^3/uL (4.4-10.8)
[2022-03-26 08:53] LABS: ALT 41 U/L (14-59); AST 31 U/L (15-37); Albumin 3.5 g/dL (3.4-5.0); Alkaline Phosphatase 250 U/L (46-116); Anion Gap 8.2 mmol/L (3-11); BUN 10 mg/dL (7-18); Bilirubin, Total 0.5 mg/dL (0.2-1.0); CO2 27.8 mmol/L (21.0-32.0); CREATININE 0.7 mg/dL (0.55-1.02); Calcium 8.8 mg/dL (8.5-10.1); Chloride 104 mmol/L (98-107); Glucose 150 mg/dL (74-106); Sodium 140 mmol/L (136-145)
[2022-03-29 11:19] LABS: CA 19-9 29 U/mL (<35)
[2022-04-02] MEDS: Normal Saline Flush 10 ML SYR IVP (08:02)
[2022-04-02 08:20] LABS: Abs Immature Grans 0.02 10^3/uL (0.0-0.06); Absolute Basophil Count 0.02 10^3/uL (0.0-0.2); Absolute Eosinophil Count 0.04 10^3/uL (0.0-0.7); Absolute Lymphocyte Count 0.71 10^3/uL (1.2-3.4); Absolute Monocyte Count 0.42 10^3/uL (0.1-0.8); Absolute Neutrophil Count 3.25 10^3/uL (1.2-6.7); Basophils % 0.4; Eosinophils % 0.9; HCT 36.1 % (36.0-46.0); HGB 12.1 g/dL (11.2-15.7); Immature Grans % 0.4; Lymphocytes % 15.9; MCH 31.3 pg (27.0-33.0); MCHC 33.5 % (32.0-36.0); MCV 93 fL (80-95); MPV 9.6 fL (8.0-11.0); Monocytes % 9.4; Platelet Count 168 10^3/uL (130-400); RBC 3.87 10^6/uL (3.93-5.22); RDW 13.4 % (11.7-14.6); RDW-SD 45.6 fL; WBC 4.46 10^3/uL (4.4-10.8)
[2022-04-02 08:34] LABS: ALT 66 U/L (14-59); AST 61 U/L (15-37); Albumin 3.3 g/dL (3.4-5.0); Alkaline Phosphatase 267 U/L (46-116); BUN 12 mg/dL (7-18); Bilirubin, Total 0.5 mg/dL (0.2-1.0); CREATININE 0.8 mg/dL (0.55-1.02); Calcium 8.5 mg/dL (8.5-10.1); Chloride 106 mmol/L (98-107); Glucose 121 mg/dL (74-106); Sodium 143 mmol/L (136-145); Total Protein 6.6 g/dL (6.4-8.2)
[2022-04-05 10:14] LABS: CA 19-9 26 U/mL (<35)
[2022-04-09 12:05] LABS: Abs Immature Grans 0.03 10^3/uL (0.0-0.06); Absolute Basophil Count 0.01 10^3/uL (0.0-0.2); Absolute Eosinophil Count 0.02 10^3/uL (0.0-0.7); Absolute Lymphocyte Count 0.56 10^3/uL (1.2-3.4); Absolute Monocyte Count 0.45 10^3/uL (0.1-0.8); Absolute Neutrophil Count 3.23 10^3/uL (1.2-6.7); Basophils % 0.2; Eosinophils % 0.5; HCT 35.3 % (36.0-46.0); HGB 11.6 g/dL (11.2-15.7); Immature Grans % 0.7; MCH 30.9 pg (27.0-33.0); MCHC 32.9 % (32.0-36.0); MCV 94 fL (80-95); MPV 9.5 fL (8.0-11.0); Monocytes % 10.5; Neutrophils % 75.1; Platelet Count 107 10^3/uL (130-400); RBC 3.76 10^6/uL (3.93-5.22); RDW 13.7 % (11.7-14.6); RDW-SD 45.8 fL
[2022-04-09] MEDS: Normal Saline Flush 10 ML SYR IVP (12:11)
[2022-04-09 12:20] LABS: ALT 71 U/L (14-59); AST 53 U/L (15-37); Albumin 3.2 g/dL (3.4-5.0); Alkaline Phosphatase 300 U/L (46-116); BUN 14 mg/dL (7-18); Bilirubin, Total 0.5 mg/dL (0.2-1.0); CREATININE 0.7 mg/dL (0.55-1.02); Calcium 8.7 mg/dL (8.5-10.1); Chloride 101 mmol/L (98-107); Glucose 213 mg/dL (74-106); Potassium 4.5 mmol/L (3.5-5.1); Sodium 138 mmol/L (136-145); Total Protein 6.7 g/dL (6.4-8.2)
[2022-04-12 12:04] LABS: CA 19-9 19 U/mL (<35)
== END 2022-04-21 23:59 | disposition home or self-care (01) ==
LOC: INF 00:46
PROVIDERS: Visit Provider Internal Medicine Hematology & Oncology
DX: C25.0 Malignant neoplasm of head of pancreas (principal); Z45.2 Encounter for adjustment and management of vascular access device
CPT/HCPCS: 36591; 80053; 85025; 86301

== ENCOUNTER 2022-05-14 00:35 | Outpatient (RCR) | payer MEDICARE, SELFPAY ==
[2022-04-22 00:03] VITALS: BP 115/65; PULSE 68; RESP 18; TEMP 36.4
[2022-04-23 09:30] LABS: Abs Immature Grans 0.23 10^3/uL (0.0-0.06); Absolute Eosinophil Count 0.16 10^3/uL (0.0-0.7); Absolute Lymphocyte Count 0.89 10^3/uL (1.2-3.4); Absolute Monocyte Count 0.85 10^3/uL (0.1-0.8); Absolute Neutrophil Count 3.69 10^3/uL (1.2-6.7); Basophils % 1.7; Eosinophils % 2.7; HCT 35.8 % (36.0-46.0); HGB 11.4 g/dL (11.2-15.7); Immature Grans % 3.9; MCH 30.7 pg (27.0-33.0); MCHC 31.8 % (32.0-36.0); MCV 97 fL (80-95); MPV 9.8 fL (8.0-11.0); Monocytes % 14.4; Neutrophils % 62.3; Platelet Count 354 10^3/uL (130-400); RBC 3.71 10^6/uL (3.93-5.22); RDW 15.2 % (11.7-14.6); RDW-SD 53.1 fL; WBC 5.92 10^3/uL (4.4-10.8)
[2022-04-23] MEDS: Normal Saline Flush 10 ML SYR IVP (09:31)
[2022-04-23 09:44] LABS: ALT 144 U/L (14-59); AST 119 U/L (15-37); Albumin 2.6 g/dL (3.4-5.0); Alkaline Phosphatase 447 U/L (46-116); Anion Gap 4.1 mmol/L (3-11); BUN 13 mg/dL (7-18); Bilirubin, Total 0.5 mg/dL (0.2-1.0); CO2 30.9 mmol/L (21.0-32.0); CREATININE 0.8 mg/dL (0.55-1.02); Calcium 8.2 mg/dL (8.5-10.1); Chloride 103 mmol/L (98-107); Estimated GFR 75.84 (mL/min/1.73m2); Glucose 276 mg/dL (74-106); Potassium 4.3 mmol/L (3.5-5.1); Sodium 138 mmol/L (136-145); Total Protein 6.3 g/dL (6.4-8.2)
[2022-04-23 11:42] LABS: Hemoglobin A1C 7.4 % (<5.7)
[2022-04-30] MEDS: Normal Saline Flush 10 ML SYR IVP (10:04)
[2022-04-30 10:16] LABS: Absolute Basophil Count 0.11 10^3/uL (0.0-0.2); Absolute Eosinophil Count 0.32 10^3/uL (0.0-0.7); Absolute Lymphocyte Count 1.08 10^3/uL (1.2-3.4); Absolute Monocyte Count 0.81 10^3/uL (0.1-0.8); Absolute Neutrophil Count 4.68 10^3/uL (1.2-6.7); Basophils % 1.5; Eosinophils % 4.5; HCT 37.4 % (36.0-46.0); HGB 12.2 g/dL (11.2-15.7); Immature Grans % 1.4; Lymphocytes % 15.2; MCH 31.4 pg (27.0-33.0); MCHC 32.6 % (32.0-36.0); MCV 96 fL (80-95); Monocytes % 11.4; Platelet Count 405 10^3/uL (130-400); RBC 3.88 10^6/uL (3.93-5.22); RDW 15.6 % (11.7-14.6); RDW-SD 55.5 fL
[2022-04-30 10:57] LABS: ALT 84 U/L (14-59); AST 70 U/L (15-37); Alkaline Phosphatase 361 U/L (46-116); Anion Gap 1.5 mmol/L (3-11); BUN 8 mg/dL (7-18); Bilirubin, Total 0.3 mg/dL (0.2-1.0); CO2 32.5 mmol/L (21.0-32.0); CREATININE 0.8 mg/dL (0.55-1.02); Calcium 8.4 mg/dL (8.5-10.1); Chloride 103 mmol/L (98-107); Estimated GFR 75.84 (mL/min/1.73m2); Glucose 182 mg/dL (74-106); Potassium 4.3 mmol/L (3.5-5.1); Sodium 137 mmol/L (136-145); Total Protein 6.5 g/dL (6.4-8.2)
[2022-05-03 12:19] LABS: CA 19-9 27 U/mL (<35)
[2022-05-03 14:35] LABS: CA 19-9 21 U/mL (<35)
[2022-05-07 09:53] LABS: Abs Immature Grans 0.04 10^3/uL (0.0-0.06); Absolute Basophil Count 0.03 10^3/uL (0.0-0.2); Absolute Eosinophil Count 0.19 10^3/uL (0.0-0.7); Absolute Lymphocyte Count 0.84 10^3/uL (1.2-3.4); Absolute Monocyte Count 0.44 10^3/uL (0.1-0.8); Absolute Neutrophil Count 2.52 10^3/uL (1.2-6.7); Basophils % 0.7; Eosinophils % 4.7; HCT 35.1 % (36.0-46.0); HGB 11.5 g/dL (11.2-15.7); Lymphocytes % 20.7; MCH 31.1 pg (27.0-33.0); MCHC 32.8 % (32.0-36.0); MCV 95 fL (80-95); MPV 10.3 fL (8.0-11.0); Monocytes % 10.8; Neutrophils % 62.1; Platelet Count 223 10^3/uL (130-400); RDW-SD 52.2 fL; WBC 4.06 10^3/uL (4.4-10.8)
[2022-05-07] MEDS: Normal Saline Flush 10 ML SYR IVP (09:58)
[2022-05-07 10:14] LABS: ALT 87 U/L (14-59); AST 69 U/L (15-37); Albumin 3.2 g/dL (3.4-5.0); Alkaline Phosphatase 294 U/L (46-116); Anion Gap 5.5 mmol/L (3-11); BUN 17 mg/dL (7-18); Bilirubin, Total 0.4 mg/dL (0.2-1.0); CO2 29.5 mmol/L (21.0-32.0); CREATININE 0.7 mg/dL (0.55-1.02); Chloride 103 mmol/L (98-107); Estimated GFR 89.02 (mL/min/1.73m2); Glucose 108 mg/dL (74-106); Potassium 4.4 mmol/L (3.5-5.1); Sodium 138 mmol/L (136-145); Total Protein 6.9 g/dL (6.4-8.2)
[2022-05-10 08:22] LABS: CA 19-9 16 U/mL (<35)
[2022-05-14] MEDS: Normal Saline Flush 10 ML SYR IVP (08:39)
[2022-05-14 08:49] LABS: HCT 35.7 % (36.0-46.0); HGB 11.4 g/dL (11.2-15.7); MCH 31.1 pg (27.0-33.0); MCHC 31.9 % (32.0-36.0); MCV 97 fL (80-95); Platelet Count 147 10^3/uL (130-400); RBC 3.67 10^6/uL (3.93-5.22); RDW-SD 53.3 fL; WBC 4.32 10^3/uL (4.4-10.8)
[2022-05-14 09:01] LABS: Absolute Eosinophil Count 0.13 10^3/uL (0.0-0.7); Absolute Lymphocyte Count 0.86 10^3/uL (1.2-3.4); Absolute Monocyte Count 0.26 10^3/uL (0.1-0.8); Absolute Neutrophil Count 3.07 10^3/uL (1.2-6.7); Atypical Lymphocytes % 4; Bands % 1
[2022-05-14 09:02] LABS: Diff Comment Manual Differential; RBC Morphology Normal
[2022-05-14 09:05] LABS: ALT 79 U/L (14-59); AST 52 U/L (15-37); Albumin 3.3 g/dL (3.4-5.0); Alkaline Phosphatase 263 U/L (46-116); Anion Gap 9.3 mmol/L (3-11); BUN 15 mg/dL (7-18); Bilirubin, Total 0.6 mg/dL (0.2-1.0); CO2 27.7 mmol/L (21.0-32.0); CREATININE 0.9 mg/dL (0.55-1.02); Calcium 9.2 mg/dL (8.5-10.1); Chloride 103 mmol/L (98-107); Estimated GFR 65.84 (mL/min/1.73m2); Glucose 183 mg/dL (74-106); Potassium 3.9 mmol/L (3.5-5.1); Sodium 140 mmol/L (136-145); Total Protein 7.1 g/dL (6.4-8.2)
[2022-05-17 12:55] LABS: CA 19-9 11 U/mL (<35)
== END 2022-05-21 23:59 | disposition home or self-care (01) ==
LOC: INF 00:35
PROVIDERS: Visit Provider Internal Medicine Hematology & Oncology
DX: C25.0 Malignant neoplasm of head of pancreas (principal); R73.9 Hyperglycemia, unspecified; Z45.2 Encounter for adjustment and management of vascular access device
CPT/HCPCS: 36591; 80053; 83036; 85025; 86301

== ENCOUNTER 2022-06-11 01:14 | Outpatient (RCR) | payer MEDICARE, SELFPAY ==
[2022-05-22 00:16] VITALS: BP 115/65; PULSE 68; RESP 18; TEMP 36.4
[2022-05-28] MEDS: Normal Saline Flush 10 ML SYR IVP (11:07)
[2022-05-28 11:16] LABS: Abs Immature Grans 0.07 10^3/uL (0.0-0.06); Absolute Basophil Count 0.07 10^3/uL (0.0-0.2); Absolute Eosinophil Count 0.15 10^3/uL (0.0-0.7); Absolute Lymphocyte Count 0.87 10^3/uL (1.2-3.4); Absolute Monocyte Count 0.96 10^3/uL (0.1-0.8); Absolute Neutrophil Count 3.27 10^3/uL (1.2-6.7); Basophils % 1.3; Eosinophils % 2.8; HCT 35.2 % (36.0-46.0); HGB 11.5 g/dL (11.2-15.7); Immature Grans % 1.3; Lymphocytes % 16.1; MCH 31.3 pg (27.0-33.0); MCHC 32.7 % (32.0-36.0); MCV 96 fL (80-95); MPV 9.5 fL (8.0-11.0); Monocytes % 17.8; Neutrophils % 60.7; Platelet Count 363 10^3/uL (130-400); RBC 3.68 10^6/uL (3.93-5.22); RDW 15.1 % (11.7-14.6); RDW-SD 52.3 fL; WBC 5.39 10^3/uL (4.4-10.8)
[2022-05-28 11:32] LABS: ALT 50 U/L (14-59); AST 46 U/L (15-37); Albumin 3.3 g/dL (3.4-5.0); Alkaline Phosphatase 316 U/L (46-116); Anion Gap 4.4 mmol/L (3-11); BUN 9 mg/dL (7-18); Bilirubin, Total 0.5 mg/dL (0.2-1.0); CO2 30.6 mmol/L (21.0-32.0); CREATININE 0.8 mg/dL (0.55-1.02); Calcium 8.4 mg/dL (8.5-10.1); Chloride 101 mmol/L (98-107); Estimated GFR 75.84 (mL/min/1.73m2); Glucose 187 mg/dL (74-106); Sodium 136 mmol/L (136-145); Total Protein 6.6 g/dL (6.4-8.2)
[2022-05-31 11:53] LABS: CA 19-9 48 U/mL (<35)
[2022-06-04] MEDS: Normal Saline Flush 10 ML SYR IVP (11:05)
[2022-06-04 11:22] LABS: Abs Immature Grans 0.09 10^3/uL (0.0-0.06); Absolute Basophil Count 0.04 10^3/uL (0.0-0.2); Absolute Eosinophil Count 0.02 10^3/uL (0.0-0.7); Absolute Lymphocyte Count 0.65 10^3/uL (1.2-3.4); Absolute Neutrophil Count 7.94 10^3/uL (1.2-6.7); Basophils % 0.4; Eosinophils % 0.2; HCT 34.5 % (36.0-46.0); HGB 11.3 g/dL (11.2-15.7); Immature Grans % 0.9; Lymphocytes % 6.7; MCH 31.1 pg (27.0-33.0); MCHC 32.8 % (32.0-36.0); MCV 95 fL (80-95); MPV 9.8 fL (8.0-11.0); Monocytes % 9.3; Neutrophils % 82.5; Platelet Count 260 10^3/uL (130-400); RBC 3.63 10^6/uL (3.93-5.22); RDW 14.3 % (11.7-14.6); RDW-SD 49.4 fL; WBC 9.64 10^3/uL (4.4-10.8)
[2022-06-04 11:51] LABS: ALT 67 U/L (14-59); AST 72 U/L (15-37); Albumin 3.2 g/dL (3.4-5.0); Alkaline Phosphatase 396 U/L (46-116); Anion Gap 4.4 mmol/L (3-11); BUN 10 mg/dL (7-18); Bilirubin, Total 0.7 mg/dL (0.2-1.0); CO2 30.6 mmol/L (21.0-32.0); CREATININE 0.8 mg/dL (0.55-1.02); Calcium 8.7 mg/dL (8.5-10.1); Chloride 97 mmol/L (98-107); Estimated GFR 75.84 (mL/min/1.73m2); Glucose 121 mg/dL (74-106); Potassium 4.1 mmol/L (3.5-5.1); Sodium 132 mmol/L (136-145); Total Protein 7.1 g/dL (6.4-8.2)
[2022-06-07 11:31] LABS: CA 19-9 17 U/mL (<35)
[2022-06-11 08:49] LABS: Abs Immature Grans 0.17 10^3/uL (0.0-0.06); Absolute Basophil Count 0.06 10^3/uL (0.0-0.2); Absolute Eosinophil Count 0.38 10^3/uL (0.0-0.7); Absolute Lymphocyte Count 0.92 10^3/uL (1.2-3.4); Absolute Monocyte Count 0.94 10^3/uL (0.1-0.8); Absolute Neutrophil Count 4.62 10^3/uL (1.2-6.7); Basophils % 0.8; Eosinophils % 5.4; HCT 36.3 % (36.0-46.0); HGB 11.5 g/dL (11.2-15.7); Immature Grans % 2.4; MCH 30.3 pg (27.0-33.0); MCHC 31.7 % (32.0-36.0); MCV 96 fL (80-95); MPV 9.9 fL (8.0-11.0); Monocytes % 13.3; Neutrophils % 65.1; Platelet Count 318 10^3/uL (130-400); RBC 3.79 10^6/uL (3.93-5.22); RDW 14.4 % (11.7-14.6); RDW-SD 50.3 fL; WBC 7.09 10^3/uL (4.4-10.8)
[2022-06-11] MEDS: Normal Saline Flush 10 ML SYR IVP (09:04)
[2022-06-11 09:10] LABS: ALT 73 U/L (14-59); AST 70 U/L (15-37); Alkaline Phosphatase 371 U/L (46-116); BUN 12 mg/dL (7-18); Bilirubin, Total 0.4 mg/dL (0.2-1.0); CREATININE 0.7 mg/dL (0.55-1.02); Calcium 8.7 mg/dL (8.5-10.1); Chloride 100 mmol/L (98-107); Estimated GFR 89.02 (mL/min/1.73m2); Glucose 153 mg/dL (74-106); Potassium 4.2 mmol/L (3.5-5.1); Sodium 137 mmol/L (136-145); Total Protein 6.9 g/dL (6.4-8.2)
[2022-06-14 13:19] LABS: CA 19-9 23 U/mL (<35)
== END 2022-06-21 23:59 | disposition home or self-care (01) ==
LOC: INF 01:14
PROVIDERS: Visit Provider Internal Medicine Hematology & Oncology
DX: C25.0 Malignant neoplasm of head of pancreas (principal); Z45.2 Encounter for adjustment and management of vascular access device
CPT/HCPCS: 36591; 80053; 85025; 86301

== ENCOUNTER 2022-10-15 11:35 | Outpatient (RCR) | payer MEDICARE, SELFPAY ==
[2022-10-08] MEDS: Heparin 500 UNITS/5 ML SYRINGE (12:30)
[2022-10-08] MEDS: Normal Saline Flush 10 ML SYR IVP (12:31)
[2022-10-08 12:40] LABS: Abs Immature Grans 0.02 10^3/uL (0.0-0.06); Absolute Basophil Count 0.05 10^3/uL (0.0-0.2); Absolute Eosinophil Count 0.11 10^3/uL (0.0-0.7); Absolute Lymphocyte Count 0.76 10^3/uL (1.2-3.4); Absolute Monocyte Count 0.46 10^3/uL (0.1-0.8); Absolute Neutrophil Count 4.41 10^3/uL (1.2-6.7); Basophils % 0.9; Eosinophils % 1.9; HCT 38.4 % (36.0-46.0); HGB 12.2 g/dL (11.2-15.7); Immature Grans % 0.3; Lymphocytes % 13.1; MCH 30.3 pg (27.0-33.0); MCHC 31.8 % (32.0-36.0); MCV 95 fL (80-95); MPV 9.4 fL (8.0-11.0); Monocytes % 7.9; Neutrophils % 75.9; Platelet Count 315 10^3/uL (130-400); RBC 4.03 10^6/uL (3.93-5.22); RDW 13.4 % (11.7-14.6); RDW-SD 47.2 fL; WBC 5.81 10^3/uL (4.4-10.8)
[2022-10-08 12:59] LABS: ALT 39 U/L (14-59); AST 30 U/L (15-37); Albumin 3.3 g/dL (3.4-5.0); Alkaline Phosphatase 327 U/L (46-116); Anion Gap 6.3 mmol/L (3-11); BUN 10 mg/dL (7-18); Bilirubin, Total 0.5 mg/dL (0.2-1.0); CO2 28.7 mmol/L (21.0-32.0); CREATININE 0.9 mg/dL (0.55-1.02); Calcium 8.9 mg/dL (8.5-10.1); Chloride 101 mmol/L (98-107); Estimated GFR 65.84 (mL/min/1.73m2); Glucose 219 mg/dL (74-106); Potassium 4.2 mmol/L (3.5-5.1); Sodium 136 mmol/L (136-145); Total Protein 7.2 g/dL (6.4-8.2)
[2022-10-11 08:43] LABS: CA 19-9 27 U/mL (<35)
[2022-10-15] MEDS: Normal Saline Flush 10 ML SYR IVP (11:43)
[2022-10-15 12:09] LABS: Abs Immature Grans 0.04 10^3/uL (0.0-0.06); Absolute Basophil Count 0.06 10^3/uL (0.0-0.2); Absolute Eosinophil Count 0.07 10^3/uL (0.0-0.7); Absolute Lymphocyte Count 0.72 10^3/uL (1.2-3.4); Absolute Monocyte Count 0.68 10^3/uL (0.1-0.8); Absolute Neutrophil Count 7.01 10^3/uL (1.2-6.7); Basophils % 0.7; Eosinophils % 0.8; HCT 38.7 % (36.0-46.0); HGB 12.6 g/dL (11.2-15.7); Immature Grans % 0.5; Lymphocytes % 8.4; MCH 30.5 pg (27.0-33.0); MCHC 32.6 % (32.0-36.0); MCV 94 fL (80-95); MPV 9.7 fL (8.0-11.0); Monocytes % 7.9; Neutrophils % 81.7; Platelet Count 331 10^3/uL (130-400); RBC 4.13 10^6/uL (3.93-5.22); RDW-SD 44.9 fL; WBC 8.58 10^3/uL (4.4-10.8)
[2022-10-15 12:28] LABS: ALT 24 U/L (14-59); AST 24 U/L (15-37); Albumin 3.1 g/dL (3.4-5.0); Alkaline Phosphatase 268 U/L (46-116); BUN 12 mg/dL (7-18); Bilirubin, Total 0.5 mg/dL (0.2-1.0); CREATININE 0.8 mg/dL (0.55-1.02); Calcium 9.2 mg/dL (8.5-10.1); Chloride 100 mmol/L (98-107); Estimated GFR 75.84 (mL/min/1.73m2); Glucose 174 mg/dL (74-106); Potassium 3.9 mmol/L (3.5-5.1); Sodium 137 mmol/L (136-145); Total Protein 7.5 g/dL (6.4-8.2)
[2022-10-18 10:32] LABS: CA 19-9 17 U/mL (<35)
== END 2022-10-19 23:59 | disposition home or self-care (01) ==
LOC: INF 11:35
PROVIDERS: Visit Provider Internal Medicine Hematology & Oncology
DX: C25.0 Malignant neoplasm of head of pancreas (principal); Z45.2 Encounter for adjustment and management of vascular access device
CPT/HCPCS: 36591; 80053; 85025; 86301

== ENCOUNTER 2022-11-19 01:22 | Outpatient (RCR) | payer MEDICARE, SELFPAY ==
[2022-10-29 09:09] LABS: Abs Immature Grans 0.05 10^3/uL (0.0-0.06); Absolute Basophil Count 0.03 10^3/uL (0.0-0.2); Absolute Eosinophil Count 0.05 10^3/uL (0.0-0.7); Absolute Lymphocyte Count 0.46 10^3/uL (1.2-3.4); Absolute Monocyte Count 0.58 10^3/uL (0.1-0.8); Absolute Neutrophil Count 6.33 10^3/uL (1.2-6.7); Basophils % 0.4; Eosinophils % 0.7; HGB 11.5 g/dL (11.2-15.7); Immature Grans % 0.7; Lymphocytes % 6.1; MCH 29.5 pg (27.0-33.0); MCHC 31.9 % (32.0-36.0); MCV 92 fL (80-95); MPV 9.2 fL (8.0-11.0); Monocytes % 7.7; Neutrophils % 84.4; Platelet Count 404 10^3/uL (130-400); RDW 13.2 % (11.7-14.6); RDW-SD 44.6 fL
[2022-10-29] MEDS: Normal Saline Flush 10 ML SYR IVP (09:14)
[2022-10-29 09:34] LABS: ALT 54 U/L (14-59); AST 67 U/L (15-37); Albumin 2.8 g/dL (3.4-5.0); Alkaline Phosphatase 378 U/L (46-116); Anion Gap 7.5 mmol/L (3-11); BUN 9 mg/dL (7-18); Bilirubin, Total 0.5 mg/dL (0.2-1.0); CO2 28.5 mmol/L (21.0-32.0); CREATININE 0.8 mg/dL (0.55-1.02); Calcium 8.8 mg/dL (8.5-10.1); Chloride 102 mmol/L (98-107); Estimated GFR 75.84 (mL/min/1.73m2); Glucose 227 mg/dL (74-106); Potassium 4.3 mmol/L (3.5-5.1); Sodium 138 mmol/L (136-145); Total Protein 7.2 g/dL (6.4-8.2)
[2022-11-01 09:16] LABS: CA 19-9 17 U/mL (<35)
[2022-11-12] MEDS: Normal Saline Flush 10 ML SYR IVP (09:30)
[2022-11-12 09:39] LABS: Abs Immature Grans 0.05 10^3/uL (0.0-0.06); Absolute Basophil Count 0.03 10^3/uL (0.0-0.2); Absolute Eosinophil Count 0.01 10^3/uL (0.0-0.7); Absolute Lymphocyte Count 0.45 10^3/uL (1.2-3.4); Absolute Monocyte Count 0.53 10^3/uL (0.1-0.8); Absolute Neutrophil Count 6.81 10^3/uL (1.2-6.7); Basophils % 0.4; Eosinophils % 0.1; HCT 33.5 % (36.0-46.0); HGB 10.7 g/dL (11.2-15.7); Immature Grans % 0.6; Lymphocytes % 5.7; MCH 28.5 pg (27.0-33.0); MCHC 31.9 % (32.0-36.0); MCV 89 fL (80-95); MPV 10.1 fL (8.0-11.0); Monocytes % 6.7; Neutrophils % 86.5; Platelet Count 188 10^3/uL (130-400); RBC 3.75 10^6/uL (3.93-5.22); RDW-SD 45.4 fL; WBC 7.88 10^3/uL (4.4-10.8)
[2022-11-12 09:57] LABS: ALT 63 U/L (14-59); AST 65 U/L (15-37); Albumin 2.5 g/dL (3.4-5.0); Alkaline Phosphatase 484 U/L (46-116); Anion Gap 6.1 mmol/L (3-11); BUN 12 mg/dL (7-18); Bilirubin, Total 0.8 mg/dL (0.2-1.0); CO2 26.9 mmol/L (21.0-32.0); CREATININE 1.1 mg/dL (0.55-1.02); Calcium 8.4 mg/dL (8.5-10.1); Chloride 94 mmol/L (98-107); Estimated GFR 51.75 (mL/min/1.73m2); Glucose 369 mg/dL (74-106); Potassium 3.6 mmol/L (3.5-5.1); Sodium 127 mmol/L (136-145); Total Protein 6.6 g/dL (6.4-8.2)
[2022-11-15 10:14] LABS: CA 19-9 32 U/mL (<35)
== END 2022-11-19 23:59 | disposition home or self-care (01) ==
LOC: INF 01:22
PROVIDERS: Visit Provider Internal Medicine Hematology & Oncology
DX: C25.0 Malignant neoplasm of head of pancreas (principal); Z45.2 Encounter for adjustment and management of vascular access device
CPT/HCPCS: 36591; 80053; 85025; 86301

== ENCOUNTER 2022-11-26 01:35 | Outpatient (RCR) | payer MEDICARE, SELFPAY ==
[2022-11-26 12:32] LABS: Abs Immature Grans 0.21 10^3/uL (0.0-0.06); Absolute Basophil Count 0.04 10^3/uL (0.0-0.2); Absolute Lymphocyte Count 0.41 10^3/uL (1.2-3.4); Basophils % 0.3; HCT 29.4 % (36.0-46.0); HGB 9.2 g/dL (11.2-15.7); Immature Grans % 1.8; Lymphocytes % 3.5; MCH 28.9 pg (27.0-33.0); MCHC 31.3 % (32.0-36.0); MCV 93 fL (80-95); MPV 9.9 fL (8.0-11.0); Monocytes % 3.1; Neutrophils % 91.3; Platelet Count 531 10^3/uL (130-400); RBC 3.18 10^6/uL (3.93-5.22); RDW 16.8 % (11.7-14.6); RDW-SD 54.6 fL; WBC 11.79 10^3/uL (4.4-10.8)
[2022-11-26 12:33] LABS: Absolute Monocyte Count 0.37 10^3/uL (0.1-0.8); Absolute Neutrophil Count 10.76 10^3/uL (1.2-6.7)
[2022-11-26 12:52] LABS: ALT 32 U/L (14-59); AST 31 U/L (15-37); Albumin 2.2 g/dL (3.4-5.0); Alkaline Phosphatase 531 U/L (46-116); Anion Gap 7.1 mmol/L (3-11); BUN 12 mg/dL (7-18); Bilirubin, Total 0.7 mg/dL (0.2-1.0); CO2 28.9 mmol/L (21.0-32.0); CREATININE 0.9 mg/dL (0.55-1.02); Calcium 8.4 mg/dL (8.5-10.1); Chloride 103 mmol/L (98-107); Estimated GFR 65.84 (mL/min/1.73m2); Glucose 265 mg/dL (74-106); Potassium 5.6 mmol/L (3.5-5.1); Sodium 139 mmol/L (136-145); Total Protein 6.2 g/dL (6.4-8.2)
[2022-11-29 12:55] LABS: CA 19-9 34 U/mL (<35)
== END 2022-12-19 23:59 | disposition home or self-care (01) ==
LOC: INF 01:35
PROVIDERS: Visit Provider Internal Medicine Hematology & Oncology
DX: C25.0 Malignant neoplasm of head of pancreas (principal)
CPT/HCPCS: 36415; 80053; 85025; 86301